=== PATIENT | male | born 1950 | race Caucasian/White ===

== ENCOUNTER → 2016-08-18 | Outpatient (CLI) | payer BC ==
[~2016-08-18] MED LIST: GLCSUNK PO; HYDC25 PO; LISI40TA PO; LRT5 PO; MULT-506 PO; SULF1TAB92 PO
== END | disposition home or self-care (01) ==
LOC: C.PATHSPEC 17:25
PROVIDERS: ATTEND Urology
DX: R31.9 Hematuria, unspecified (principal)

== ENCOUNTER 2021-06-23 08:06 | Observation (INO) ==
--- NOTE | 2021-06-06 09:50 | PAT Medication Instructions ---
Medication Instructions Date of Service June 06, 2021 Home Medications Medication Instructions Recorded oxybutynin chloride 5 mg tablet 5 mg PO Q8H PRN #20 tab 07/22/20 phenazopyridine 200 mg tablet 200 mg PO Q8H PRN #10 tab 07/29/20 (Pyridium) diltiazem HCl 240 mg 240 mg PO QAM #90 cap 09/04/20 capsule,extended release 24 hr finasteride 5 mg tablet 5 mg PO QAM #90 tab 09/04/20 furosemide 80 mg tablet 80 mg PO QAM #90 tab 09/04/20 lancets 30 gauge (OneTouch Delica See Rx Instructions .ROUTE 09/04/20 Lancets) .COMPLEX #100 unspecified digoxin 250 mcg (0.25 mg) tablet 250 mcg PO HS #90 tab 10/30/20 tamsulosin 0.4 mg capsule 0.4 mg PO HS #90 cap 10/30/20 blood sugar diagnostic (OneTouch #100 ea 10/31/20 Verio test strips) pravastatin 20 mg tablet 20 mg PO HS #90 tab 02/09/21 warfarin 5 mg tablet 7.5 - 10 mg PO HS #100 tab 03/12/21 metoprolol succinate 100 mg 100 mg PO QAM #90 tab 04/07/21 tablet,extended release 24 hr metformin 500 mg tablet 1,000 mg PO BID #360 tab 05/01/21 mirabegron 50 mg tablet,extended 50 mg PO QAM 90 Days #90 tab 05/01/21 release 24 hr (Myrbetriq) potassium chloride 20 mEq 20 meq PO BID #180 tab 06/06/21 tablet,extended release vit C 250 mg-vit E 90 mg-zinc 40 mg-copper 1 [id number] capsule (PreserVision AREDS-2) 1 tab PO BID oxybutynin chloride 5 mg tablet 5 mg PO Q8H PRN phenazopyridine 200 mg tablet (Pyridium) 200 mg PO Q8H PRN diltiazem HCl 240 mg capsule,extended release 24 hr 240 mg PO QAM finasteride 5 mg tablet 5 mg PO QAM furosemide 80 mg tablet 80 mg PO QAM digoxin 250 mcg (0.25 mg) tablet 250 mcg PO HS tamsulosin 0.4 mg capsule 0.4 mg PO HS pravastatin 20 mg tablet 20 mg PO HS warfarin 5 mg tablet 7.5 - 10 mg PO HS metoprolol succinate 100 mg tablet,extended release 24 hr 100 mg PO QAM metformin 500 mg tablet 1,000 mg PO BID mirabegron 50 mg tablet,extended release 24 hr (Myrbetriq) 50 mg PO QAM potassium chloride 20 mEq tablet,extended release 20 meq PO BID ASK your prescriber and surgeon warfarin 5 mg tablet 7.5 - 10 mg PO HS STOP taking 2 weeks before surgery vit C 250 mg-vit E 90 mg-zinc 40 mg-copper 1 [id number]-cfwhlc capsule (PreserVision AREDS-2) 1 tab PO BID DO NOT take the morning of surgery oxybutynin chloride 5 mg tablet 5 mg PO Q8H PRN phenazopyridine 200 mg tablet (Pyridium) 200 mg PO Q8H PRN furosemide 80 mg tablet 80 mg PO QAM mirabegron 50 mg tablet,extended release 24 hr (Myrbetriq) 50 mg PO QAM metformin 500 mg tablet 1,000 mg PO BID potassium chloride 20 mEq tablet,extended release 20 meq PO BID Take morning of surgery With a small sip of water, OTHERWISE NOTHING TO EAT OR DRINK AFTER MIDNIGHT: diltiazem HCl 240 mg capsule,extended release 24 hr 240 mg PO QAM finasteride 5 mg tablet 5 mg PO QAM metoprolol succinate 100 mg tablet,extended release 24 hr 100 mg PO QAM Take evening before surgery oxybutynin chloride 5 mg tablet 5 mg PO Q8H PRN (if needed) phenazopyridine 200 mg tablet (Pyridium) 200 mg PO Q8H PRN (if needed) digoxin 250 mcg (0.25 mg) tablet 250 mcg PO HS tamsulosin 0.4 mg capsule 0.4 mg PO HS pravastatin 20 mg tablet 20 mg PO HS metformin 500 mg tablet 1,000 mg PO BID potassium chloride 20 mEq tablet,extended release 20 meq PO BID Other Notes If you have any questions please call us at [phone] or [phone] or [phone] or [phone]
--- NOTE | 2021-06-09 12:04 | Anesthesiology Consultation ---
Date of Service June 09, 2021 Assessment & Plan (1) Encounter for pre-operative examination: - check coags and BSG am DOS. - PCP office visit 04/06/2021 [place]: "...f/u chronic medical problems. He states compliance with current meds as listed. He has been feeling well. He reports compliance with nightly CPAP and feels rested. In regard to his cardiac complaints, he denies CP, SOB, palpitations, dizziness, leg edema...tolerating metformin for type 2 DM. He denies any bleeding issues with warfarin for his Afib. He is still waiting on his prostate procedure which has been postponed due to Covid 19...Diabetes mellitus:A1c will be drawn to assess diabetic control on metformin. Atrial fibrillation: VR controlled continue diltiazem/digoxin/metoprolol/warfarin. Hypertension: at goal continue diltiazem/metoprolol. Obstructive sleep apnea: patient is compliant with and benefitting from CPAP for LEESA..." - cardiology office visit 03/27/2021 [facility]: "...routine cardiology follow- up...does not offer any cardiac complaints today...EKG 03/27/2021 atrial fibrillation 85 bpm RBBB QTC 506...permanent atrial fibrillation-rate controlled, anticoagulated with Coumadin...LEESA compliant with therapy...Chronic diastolic heart failure euvolemic on exam...follow up in 1 year..." - COVID screening: Per assessment on 06/09/2021: Travel screen negative, no known COVID-19 positive contacts or current COVID-19 related symptoms in past 2 weeks. Patient vaccinated. Surgeon arranging preop COVID testing, scheduled 06/19/2021. Awaiting results. Chart Review Chart Review: Acceptable Risk for Surgery and Patient seen in Pre Admission Testing Teaching & Discussion Pre-Anesthesia Teaching/Discussion Notes: Instructed NPO after midnight before surgery, except medications with 15 cc of water. Medication instructions provided according to the PAT guidelines. History Surgery Operation Date: 06/23/21 07:00 Proposed Procedures p (PVP-Greenlight) Photoselective Vaporization of the Prostate using the Greenlight Laser - Gilbert Cat DO s Possible Cystolithopaxy - Gilbert Cat DO Surgery re-scheduled multiple times due to OR limitations in COVID 10 pandemic. Initial anesthesia review 01/2021. Height/Weight Height: 6 ft 1 in Weight: 141.7 kg Allergies Allergy/AdvReac Type Severity Reaction Status Date / Time No Known Drug Allergies Allergy Unknown Verified 06/05/21 13:00 Medications Home Medications Medication Instructions Recorded Confirmed Last Taken vit C 250 mg-vit E 90 mg-zinc 40 1 tab PO BID 04/03/20 06/05/21 07/21/20 15:00 mg-copper 1 [id number]-upgoff-myikmd capsule (PreserVision AREDS-2) oxybutynin chloride 5 mg tablet 5 mg PO Q8H PRN #20 tab 07/22/20 06/05/21 Unknown phenazopyridine 200 mg tablet 200 mg PO Q8H PRN #10 tab 07/29/20 06/05/21 Unknown (Pyridium) diltiazem HCl 240 mg 240 mg PO QAM #90 cap 09/04/20 06/05/21 Unknown capsule,extended release 24 hr finasteride 5 mg tablet 5 mg PO QAM #90 tab 09/04/20 06/05/21 Unknown furosemide 80 mg tablet 80 mg PO QAM #90 tab 09/04/20 06/05/21 Unknown lancets 30 gauge (OneTouch Delica See Rx Instructions .ROUTE 09/04/20 06/05/21 Unknown Lancets) .COMPLEX #100 unspecified digoxin 250 mcg (0.25 mg) tablet 250 mcg PO HS #90 tab 10/30/20 06/05/21 Unknown tamsulosin 0.4 mg capsule 0.4 mg PO HS #90 cap 10/30/20 06/05/21 Unknown blood sugar diagnostic (OneTouch #100 ea 10/31/20 06/05/21 Unknown Verio test strips) pravastatin 20 mg tablet 20 mg PO HS #90 tab 02/09/21 06/05/21 Unknown warfarin 5 mg tablet 7.5 - 10 mg PO HS #100 tab 03/12/21 06/05/21 Unknown metoprolol succinate 100 mg 100 mg PO QAM #90 tab 04/07/21 06/05/21 Unknown tablet,extended release 24 hr metformin 500 mg tablet 1,000 mg PO BID #360 tab 05/01/21 06/05/21 Unknown mirabegron 50 mg tablet,extended 50 mg PO QAM 90 Days #90 tab 05/01/21 06/05/21 Unknown release 24 hr (Myrbetriq) potassium chloride 20 mEq 20 meq PO BID #180 tab 06/06/21 Unknown tablet,extended release Past Medical History Medical History (Updated 06/09/21 @ 16:38 by Claudia Forrest PA-C) Atrial fibrillation Dx Mar 2012 - follows with Dr. Quiles Benign prostatic hyperplasia with urinary obstruction Chronic congestive heart failure Follows with Dr. 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 History of bladder surgery Cystoscopy, Laser Cystolitholapaxy, Transurethral Resection of the Prostate, Transurethral Resection of Bladder Tumor Large History of cardioversion History of cataract surgery bilat History of esophagogastroduodenoscopy (EGD) History of fracture of leg RIGHT LOWER LEG HAS PIN History of tonsillectomy History of wisdom tooth extraction Hx of LASIK S/P appendectomy S/P colonoscopy S/P inguinal hernia repair Status post Mohs surgery LEG Past Anesthesia History No Hx of Anesthesia Complications and No Family Hx of Anesthesia Complications History of PONV No Hx of PONV and No Hx of Motion Sickness Social History Smoking Status: Never smoker Do You Dip or Chew Tobacco: No Hx Alcohol Use: Yes Alcohol type: beer alcohol intake frequency: a few times a month Hx Substance Use: No substance use type: does not use Review of Systems Patient denies chest pain, shortness of breath, dyspnea on exertion, reflux, fever, chills, cough, wheezing, or palpitations. Physical Exam Vital Signs Vitals BP 128/74 P 88 TEMP 97.5 SP02 95% on RA RESP 17 Physical Full cervical extension range of motion without pain Full TMJ range of motion TMD 3.5 finger breaths Mallampati Score 2 Dentition: intact, chipped front teeth, denies missing or loose teeth, caps/crowns, implants or bridges Lungs: normal respiratory effort. Clear throughout to auscultation, no adventitious breath sounds Cardiac: regular rate and rhythm, no murmurs noted Carotid arteries: negative bruit bilat Extremities: no distal extremity edema Lab Results Anesthesia Preop Results Results Anesthesia Widget: WBC 10.76 K/uL (4.8-10.8) 06/09/21 Hgb 14.7 g/dL (14.0-18.0) 06/09/21 Hct 45.3 % (42-52) 06/09/21 Plt 394 K/uL (130-400) 06/09/21 Na 142 mmol/L (136-145) 05/21/21 K 3.7 mmol/L (3.5-5.1) 05/21/21 Cl 102 mmol/L (98-107) 05/21/21 CO2 35 mmol/L (21-32) H 05/21/21 BUN 18 mg/dl (6-23) 05/21/21 Creat 0.71 mg/dl (0.6-1.4) 05/21/21 Glucose Level 208 mg/dl (70-99(Fasting)) H 05/21/21 PT 27.7 Seconds (9.0-12.0) H 06/09/21 PTT 44.9 Seconds (21.0-31.0) H 06/09/21 INR 2.7 (0.9-1.1) H 06/09/21 Urine Color Yellow 06/09/21 Urine Appearance Clear (Clear) 06/09/21 Urine pH 7.5 (4.5-7.5) 06/09/21 Urine Specific [place] 1.007 (1.000-1.030) 06/09/21 Urine Protein Negative (Negative) 06/09/21 Urine Glucose (UA) Negative (Negative) 06/09/21 Urine Ketones Negative (Negative) 06/09/21 Urine Blood Negative (Negative) 06/09/21 Urine Nitrite Negative (Negative) 06/09/21 Urine Bilirubin Negative (Negative) 06/09/21 Urine Urobilinogen Negative (Negative) 06/09/21 Urine Leukocyte Esterase Negative (Negative) 06/09/21 Urine WBC (Auto) 1-5 /hpf (0-5) 05/21/21 Urine RBC (Auto) 0-4 /hpf (0-4) 05/21/21 Urine Hyaline Casts (Auto) 1-5 /lpf (0-5) 05/21/21 Urine Epithelial Cells (Auto) >30 /lpf (0-5) H 05/21/21 Urine Bacteria (Auto) Negative (Negative) 05/21/21 Testing Electrocardiogram Date: 03/27/21 Atrial fibrillation, rate 85 bpm Left axis deviation RBBB LVH Completed at [facility] cardiology appt. Chest X-Ray Date: 07/15/20 FINDINGS: Cardiac silhouette remains mildly enlarged. Stable retrocardiac density. This favors a moderate hiatus hernia. Mild interstitial thickening at the lung bases which is likely chronic. This is also not significantly changed. Old, healed left-sided rib fractures. No focal lung consolidations to suggest pneumonia. No evidence for pulmonary edema. IMPRESSION: No significant change compared to the prior study. No acute process. Echocardiogram Date: 12/14/16 EF 58% Moderate cLVH Severe biatrial dilation No significant valvular abnormalities Other Testing CT abdomen/pelvis 05/19/2021 Moderate hiatal hernia with small amount of fluid within the hernia sac Bladder wall thickening with perivesical stranding suggesting cystitis 3 cm exophytic cyst off the upper pole of the right kidney Lobulated cystic lesion off the midportion of the left kidney measuring 3.3 x 2 cm. Few additional subcentimeter hypodensities which are statistically likely to represent small cysts but are too small to characterize.
[~2021-06-23 08:06] MED LIST changes: -GLCSUNK PO; -HYDC25 PO; -LISI40TA PO; +LR 15ML/HR IV SCH; -LRT5 PO; -MULT-506 PO; -SULF1TAB92 PO
--- NOTE | 2021-06-23 08:26 | History & Physical Report ---
Date of Service June 23, 2021 Assessment & Plan (1) Urinary incontinence: (2) Bladder stones: (3) Benign prostatic hyperplasia with urinary obstruction: Plan: Risks and benefits discussed at length for procedure. These include bleeding, infection, injury to surrounding tissues or organs, and risks associated with anesthesia. Patient states understanding and agrees to proceed. Will sign consent and proceed. Severe bladder outlet obstruction with history of bladder stones. Here for transurethral photovaporization of prostate. Had previously had median lobe resected Plan to observe overnight. History of Present Illness Primary Care Provider: Melania Bustos MD Patient here for procedure. No changes in medical issues. No major changes in urinary issues. Continued issues and concerns. No change in pain or discomfort. No severe fevers or chills. No chest pain or shortness of breath. Risks and benefits discussed at length for procedure. These include bleeding, infection, injury to surrounding tissues or organs, and risks associated with anesthesia. Patient and/or family states understanding and agrees to proceed. Consent and supporting information completed. Allergies Allergy/AdvReac Type Severity Reaction Status Date / Time No Known Drug Allergies Allergy Unknown Verified 06/05/21 13:00 Home Medications Medication Instructions Recorded Confirmed Type vit C 250 mg-vit E 90 mg-zinc 40 1 tab PO BID 04/03/20 06/05/21 History mg-copper 1 [id number]-lwkcin-dhkzwu capsule (PreserVision AREDS-2) oxybutynin chloride 5 mg tablet 5 mg PO Q8H PRN #20 tab 07/22/20 06/05/21 Rx phenazopyridine 200 mg tablet 200 mg PO Q8H PRN #10 tab 07/29/20 06/05/21 Rx (Pyridium) diltiazem HCl 240 mg 240 mg PO QAM #90 cap 09/04/20 06/05/21 Rx capsule,extended release 24 hr finasteride 5 mg tablet 5 mg PO QAM #90 tab 09/04/20 06/05/21 Rx furosemide 80 mg tablet 80 mg PO QAM #90 tab 09/04/20 06/05/21 Rx lancets 30 gauge (OneTouch Delica See Rx Instructions .ROUTE 09/04/20 06/05/21 Rx Lancets) .COMPLEX #100 unspecified digoxin 250 mcg (0.25 mg) tablet 250 mcg PO HS #90 tab 10/30/20 06/05/21 Rx tamsulosin 0.4 mg capsule 0.4 mg PO HS #90 cap 10/30/20 06/05/21 Rx blood sugar diagnostic (OneTouch #100 ea 10/31/20 06/05/21 Rx Verio test strips) pravastatin 20 mg tablet 20 mg PO HS #90 tab 02/09/21 06/05/21 Rx warfarin 5 mg tablet 7.5 - 10 mg PO HS #100 tab 03/12/21 06/05/21 Rx metoprolol succinate 100 mg 100 mg PO QAM #90 tab 04/07/21 06/05/21 Rx tablet,extended release 24 hr metformin 500 mg tablet 1,000 mg PO BID #360 tab 05/01/21 06/05/21 Rx mirabegron 50 mg tablet,extended 50 mg PO QAM 90 Days #90 tab 05/01/21 06/05/21 Rx release 24 hr (Myrbetriq) potassium chloride 20 mEq 20 meq PO BID #180 tab 06/06/21 Rx tablet,extended release Past Med/Surg History Medical History Atrial fibrillation Dx Mar 2012 - follows with Dr. Quiles Benign prostatic hyperplasia with urinary obstruction Chronic congestive heart failure Follows with Dr. 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 History of bladder surgery Cystoscopy, Laser Cystolitholapaxy, Transurethral Resection of the Prostate, Transurethral Resection of Bladder Tumor Large History of cardioversion History of cataract surgery bilat History of esophagogastroduodenoscopy (EGD) History of fracture of leg RIGHT LOWER LEG HAS PIN History of tonsillectomy History of wisdom tooth extraction Hx of LASIK S/P appendectomy S/P colonoscopy S/P inguinal hernia repair Status post Mohs surgery LEG Family History Grandmother Diabetes Mother Stroke Denies family history of Ovarian cancer Prostate cancer Myocardial infarction Breast cancer Colorectal cancer Social History Smoking Status: Never smoker Second Hand Exposure: No; Do You Dip or Chew Tobacco: No; Hx Alcohol Use: Yes Alcohol type: beer Hx Substance Use: No Preferred Language: [place] Communication Ability: Effective Visual Impairment: No Limitations Hearing Ability: Normal Admitting Officer Required: No Beliefs That Will Affect Care: None marital status: Current Living Situation: Spouse current occupational status: retired Feels Safe at Home: Yes Safety Concerns: Feels Safe At This Time Childhood Exposure to Second-Hand Smoke: No caffeine: No (decaf coffee) Dental Care, Regularly: Yes Physical Activity Frequency: Daily Physical Activity Frequency Comment: golf, gym x5d/wk Seatbelt Use: always Sunscreen Use: No Do you think of yourself as: straight/heterosexual Assistive Devices: CPAP and Glasses Review of Systems All systems reviewed & are unremarkable except as noted in HPI & below Physical Exam Physical Exam: General: Alert/Arousable. No Acute illness. Advanced age . HEENT: Inspection normal. Normal inspection of face. Normal inspection of neck. Psychologic: Normal affect/No change in mentation. Respiratory: No use of accessory muscles. No respiratory changes or exacerbation or changes with tachypnea or dyspnea. Cardiovascular: No tachycardia Skin: [place] and Dry. No new rashes or visible lesions. Abdomen: Normal inspection. No guarding. PG Care Time/CCT Total # of Minutes Spent Total Time Spent with Patient: Total time spent is greater than 50% in coordination of care (as documented) at patient's floor/unit and/or counseling patient: Coding Level of Care Code None Diagnoses Urinary incontinence R32 Bladder stones N21.0 Benign prostatic hyperplasia with urinary obstruction N40.1; N13.8
[2021-06-23] MEDS ORDERED: fentaNYL citrate 100 MCG/2 ML VIAL ONE (08:45)
[2021-06-23] MEDS ORDERED: LIDOCAINE 2% 2 ML VIAL/AMP(20MG/ML) INFIL ONE (08:45)
[2021-06-23] MEDS ORDERED: DEXAMETHASONE SOD INJ 4 MG/ML VIAL ONE (08:45)
[2021-06-23] MEDS ORDERED: PROPOFOL IV EMULSION 10 MG/ML 20 ML VIAL IV ONE (08:45)
[2021-06-23] MEDS ORDERED: ONDANSETRON INJ 2 MG/ML 2 ML VIAL ONE (08:45)
[2021-06-23 08:58] LABS: INR 1.1 (0.9-1.1); Partial Thromboplastin Ratio 1.1; Partial Thromboplastin Time 30.1 Seconds (21.0-31.0); Prothrombin Time 11.6 Seconds (9.0-12.0)
[2021-06-23] MEDS ORDERED: FLUMAZENIL 0.1 MG/1 ML 10 ML VIAL IV PRN (09:58)
[2021-06-23] MEDS ORDERED: PROMETHAZINE HCL 12.5 MG in SODIUM CHLORIDE 0.9% 50 ML IV PRN (09:58)
[2021-06-23] MEDS ORDERED: ATROPINE SULFATE 0.1 MG/ML 10ML SYR IV PRN (09:58)
[2021-06-23] MEDS ORDERED: ONDANSETRON INJ 2 MG/ML 2 ML VIAL IV PRN (09:58)
[2021-06-23] MEDS ORDERED: fentaNYL citrate 100 MCG/2 ML VIAL IV PRN (09:58)
[2021-06-23] MEDS ORDERED: ePHEDrine sulfate 50 MG/ML AMP IV PRN (09:58)
[2021-06-23] MEDS ORDERED: LABETALOL HCL IV 5 MG/ML 20ML IV PRN (09:58)
[2021-06-23] MEDS ORDERED: NALOXONE HCL 0.4 MG/1 ML VIAL/CARP IV PRN (09:58)
--- NOTE | 2021-06-23 11:59 | Operative Report ---
PG Post Operative Report Pre & Post Diagnosis Operation Date: 06/23/21 09:40 Pre-Op Diagnosis: Urinary incontinence, Bladder stones, Benign prostatic hyperplasia with urinary obstruction Post-Op Diagnosis: Urinary incontinence, Bladder stones, Benign prostatic hyperplasia with urinary obstruction I identified the patient and participated in the time-out.: Yes Procedure Operation Date: 06/23/21 09:40 Actual Procedures p (PVP-Greenlight) Photoselective Vaporization of the Prostate using the Greenlight Laser with Laser Enucleation of prostate with TURP(Not Applicable) - Gilbert Cat DO Surgeon Gilbert Cat, II, DO Circle Beveler None Estimated Blood Loss 10 Findings Consistent with Post-Op Diagnosis Large Prostate with obstruction. Fusion of lateral lobes with significant projection of prostate into bladder Specimens Prostate adenoma. Prostate enucletion Drains [address] Anesthesia Type General Complications none Disposition Disposition: Recovery Room Indications Patient with obstruction due to prostate enlargement. Risks and benefits discussed at length. Description of Procedure Patient was consented and brought back to the operating room. Patient was placed under anesthesia in the supine position and moved to the dorsal lithotomy position. Patient was prepped and draped in the regular sterile fashion. A time out was completed. A 30degree Cystoscope was placed into the bladder and the entire bladder was examined. The UO's were identified as well as the bladder neck, trigone, dome, and the other important landmarks. The prostatic urethra and large lobes/adenoma was assessed and the veru and bladder neck identified and area/size was assessed. The cystoscope with laser bridge and the Greenlight laser fiber were selected. Starting at the 5 and 7 o'clock positions, the channel was further formed from the previous resecton This was expanded from bladder neck to the veru. A channel was further formed between the two areas. No major bleeding or areas of concern. The vaporization then started at the 1 and 11 oclock positions to cut through the fusion of the lateral lobes. This was freed and the greenlight was used to enucleate pieces of adenoma in the anterior prostate. Additionally pieces were enucleated from the apex region up to the bladder neck at the 7-9 o'clock and 3-5 o'clock position. Adenoma pieces were enucleated and displaced into the bladder. The vaporization was then swept down to the channel. All bleeding was controlled. The resection scope was then exchanged into the bladder and the fine bipolar loop was selected. A severe amount of projection of the left lateral/anterior prostate was appreciated. This was resected with the scope. The enucleated pieces were removed and sent. The resected pieces were also irrigated and sent. The Specimen was removed and sent for analysis. The resection bed and any bl eeding areas were fulgurated/cauterized and the entire area inspected. All bleeding was controlled. The bladder was inspected a final time. The bladder was emptied and irrigated. All specimen and debris was removed. The scope was removed with the bladder partially full. A catheter was placed and balloon elevated. This was easily irrigated. The patient was cleaned, aroused from anesthesia, and transferred to the pacu in stable condition having tolerated the procedure well with no complications. I was present and participated in all aspects of the procedure. The patient will be monitored in the PACU until transferred. Plan to maintain catheter with 3 way irrigation overnight. Will plan for 7-10 days of catheter with removal in office. WIll monitor. I attest to the content of the Intraoperative Record and any orders documented therein. Any exceptions are noted below.
--- NOTE | 2021-06-23 13:19 | Anesthesiology Progress Note ---
Date of Service June 23, 2021 Anesthesia Post Procedure Vital Signs Vital Signs: Temp Pulse Pulse Resp BP Pulse Ox 06/23/21 12:50 78 18 133/72 97 06/23/21 12:40 36.3 C L 70 21 134/78 93 06/23/21 12:30 76 23 142/79 H 95 06/23/21 12:20 78 19 124/74 99 06/23/21 12:10 72 19 124/74 99 06/23/21 12:00 79 18 125/74 95 06/23/21 11:53 36.6 C 72 20 114/63 94 06/23/21 08:30 36.8 C 83 20 174/95 H 96 Pain Intensity Penis: Pain Intensity: 3 Transfer of Care Handoff Completed per policy Notes Mental Status: alert / awake / arousable Patient Amnestic to Procedure: Yes Nausea / Vomiting: adequately controlled Pain: adequately controlled Airway Patency, RR, SpO2: stable & adequate BP & HR: stable & adequate Hydration State: stable & adequate Anesthetic Complications: no major complications apparent
[2021-06-23] MEDS ORDERED: OXYBUTYNIN CHLORIDE 5 MG TAB PO PRN (13:20)
[2021-06-23] MEDS ORDERED: oxyCODONE/ACETAMINOPHEN 5mg/325mg TAB PO PRN (13:20)
[2021-06-23] MEDS ORDERED: BELLADONNA/OPIUM SUPP 60 MG SUPP PR PRN (13:20)
[2021-06-23] MEDS ORDERED: MoRPHine SULFATE 2 MG/ML CARP IV PRN (13:20)
[2021-06-23] MEDS ORDERED: PHENAZOPYRIDINE HCL 200 MG TAB PO PRN (13:20)
[2021-06-23] MEDS ORDERED: NON-FORMULARY MEDICATION (Vit C,E-Zn-Coppr-Lutein-Zeaxan [Preservision Areds-2] 250-200-40 PO SCH (13:20)
[2021-06-23] MEDS: FUROSEMIDE 80 MG TAB PO SCH (14:12)
[2021-06-23] MEDS: METOPROLOL SUCC 50MG EXT REL TAB PO SCH (14:12)
[2021-06-23] MEDS: dilTIAZem HCL 240 MG CAPCR PO SCH (14:12)
[2021-06-23] MEDS: DOCUSATE SODIUM 100 MG CAP PO SCH ×2 (14:12→20:04)
[2021-06-23] MEDS: SODIUM CHLORIDE 0.9% 1000ML 1,000 ML IV SCH ×2 (14:14→23:33)
[2021-06-23 14:19] LABS: Basophils # (auto) 0.02 K/uL (0-0.2); Basophils % (auto) 0.1 %; Eosinophils # (auto) 0.15 K/uL (0-0.5); Hematocrit (blood only) 42.2 % (42-52); Hemoglobin 14.2 g/dL (14.0-18.0); Immature Granulocytes # (auto) 0.12 K/uL (0.00-0.02); Immature Granulocytes % (auto) 0.8 %; Lymphocytes # (auto) 1.81 K/uL (1.2-3.4); Lymphocytes % (auto) 12.3 %; Mean Corpuscular Hemoglobin 29.2 pg (25-34); Mean Corpuscular Hgb Conc 33.6 g/dL (32-36); Mean Corpuscular Volume 86.7 fL (80-100); Mean Platelet Volume 11.3 fL (7.4-10.4); Monocytes # (auto) 0.88 K/uL (0.11-0.59); Neutrophils # (auto) 11.76 K/uL (1.4-6.5); Neutrophils % (auto) 79.8 %; Platelet Count 370 K/uL (130-400); RDW Coefficient of Variation 15.3 % (11.5-14.5); RDW Standard Deviation 48.8 fL (36.4-46.3); Red Blood Count 4.87 M/uL (4.7-6.1); White Blood Count 14.74 K/uL (4.8-10.8)
[2021-06-23 14:47] LABS: BUN Creatinine Ratio 22.7 (10-20); Calcium 8.1 mg/dl (8.5-10.1); Creatinine Clr Calc Pharmacy 153.5 ml/min; Est GFR (African American) 113.5 ml/min; Potassium 3.7 mmol/L (3.5-5.1)
--- NOTE | 2021-06-23 15:12 | Hospitalist Consultation ---
Date of Consultation June 23, 2021 Assessment & Plan (1) Benign prostatic hyperplasia with urinary obstruction: POD #0 as HPI - Pain control per primary service- appropriate with rescue Narcan available - Antibiotics per primary service - Ly/drains/CBI- per primary service - Diet per primary service - Transfusion needs per primary service - PT/OT per primary service (2) Atrial fibrillation: Chronic permanent atrial fibrillation - On Coumadin as outpatient - last took Wednesday - Last admission for uncontrolled rate was ~ 3 years ago - Continue Metoprolol, Digoxin, Diltiazem - Dig level in morning - Keep K ~ 4 and Mg ~ 2 (3) Hyperlipidemia: Continue pravastatin (4) Chronic congestive heart failure: Stable chronic- currently without acute exacerbation - As above - Continue lasix if renal indices remain normal and patient is euvolemic/hypervolemic (5) Obstructive sleep apnea: Continue with home CPAP - Patient is compliant with use - recommended to use while even napping in house if he is taking pain medication - he understood (6) Hypertension: As above (7) Diabetes mellitus: BG AC/HS with aspart sliding scale CF 20 with 1:12 ratio - follow (8) On anticoagulant therapy: On Coumadin for chronic Afib - Last taken last Wednesday- INR 1.1 - Restart when hemostasis ensured by primary service- no bridge Supervising Physician Co-Signing Physician Notes Attending Attestation & Consult Note: Pt seen/examined, chart reviewed, consult care plan d/w CAROL Eastman. I agree w/ the espinoza components of his consultation documentation. 71yo male with permanent a.fib on coumadin, BPH, chronic diastolic CHF, morbid obesity with BMI 40 - presented today for elective TURP via greenlight laser. Performing urologist Dr Gilbert Cat. I saw the patient post-op on the medical unit late in the evening. He was resting comfortably watching TV. Denied any cough, dyspnea, cp, abd pain. While sitting in the bed his O2 sats were consistently 89-90% in RA. I checked his sats w/ a different oximeter and again his O2 sats were about 90%. Exam - gen - NAD, no respiratory distress neck - no JVD heart - irregularly irregular, s1 s2 lungs - b/l basilar rales but much worse on the left; airation poor/fair; no increased work of breathing abd - soft NT ND BS+ ext - no edema, pulses 2+ b/l A/P: 1. BPH s/p greenlight laser TURP today by Dr Cat. 2. hypoxia without any pulmonary symptoms - I obtained a cxr following my visit - largely unchanged from prior cxr (my reading). Low threshold to give IV lasix this evening if any worsening of his sats. Atelectasis could be contributing to his hypoxia as well. For the rest of the evening will place on his home CPAP unit. If he needs O2 th is can be added to his CPAP. Would advise d/c of IV fluids given his known chronic diastolic CHF. 3. chronic diastolic CHF - as above. 4. permanent a.fib - rates controlled; defer to urology when coumadin can be safely resumed. Cont tele. Cont dig/CCB/BB. Agree with dig level in am. Thank you for this consult. We will follow closely with you. Jose Keller MD History of Present Illness Reason for Consultation: Medical Management Requesting Physician: Gilbert Cat Attending Physician: Gilbert Cat, II, DO History of Present Illness 71 YOM with past medical history of: LEESA(CPAP compliant), AFib (on Coumadin), HFpEF, HTN, Obesity, Urinary Incontinence, Bladder stones, and BPH with outflow obstruction. Patient is POD #0 from Photoselective Vaporization of the Prostate using the Green-light Laser with Laser Enucleation of prostate with TURP(Not Applicable) by Dr. Cat (Urology). The patient has held his Coumadin since last Wednesday. Hospitalist service was consulted for medical management. The patient was evaluated in his room on the patino. He is briskly awake and tolerated crackers. He has not had any n/v and pain is controlled postoperatively. He is on room air. Has [address] connected to CBI and is draining clear. Recommendations: - Notify hospitalist service when hemostasis ensured and can restart his Co umadin - Hold Metformin - BG checks AC/HS- sliding scale aspart ordered - Continued Digoxin- Digoxin level in the AM- already ordered Allergies Allergy/AdvReac Type Severity Reaction Status Date / Time No Known Drug Allergies Allergy Unknown Verified 06/23/21 08:37 Home Medications Medication Instructions Recorded Confirmed Type vit C 250 mg-vit E 90 mg-zinc 40 1 tab PO BID 04/03/20 06/23/21 History mg-copper 1 [id number] capsule (PreserVision AREDS-2) oxybutynin chloride 5 mg tablet 5 mg PO Q8H PRN #20 tab 07/22/20 06/23/21 Rx phenazopyridine 200 mg tablet 200 mg PO Q8H PRN #10 tab 07/29/20 06/23/21 Rx (Pyridium) diltiazem HCl 240 mg 240 mg PO QAM #90 cap 09/04/20 06/23/21 Rx capsule,extended release 24 hr finasteride 5 mg tablet 5 mg PO QAM #90 tab 09/04/20 06/23/21 Rx furosemide 80 mg tablet 80 mg PO QAM #90 tab 09/04/20 06/23/21 Rx lancets 30 gauge (OneTouch Vandana See Rx Instructions .ROUTE 09/04/20 06/23/21 Rx Lancets) .COMPLEX #100 unspecified digoxin 250 mcg (0.25 mg) tablet 250 mcg PO HS #90 tab 10/30/20 06/23/21 Rx tamsulosin 0.4 mg capsule 0.4 mg PO HS #90 cap 10/30/20 06/23/21 Rx blood sugar diagnostic (OneTouch #100 ea 10/31/20 06/05/21 Rx Verio test strips) pravastatin 20 mg tablet 20 mg PO HS #90 tab 02/09/21 06/23/21 Rx warfarin 5 mg tablet 7.5 - 10 mg PO HS #100 tab 03/12/21 06/23/21 Rx metoprolol succinate 100 mg 100 mg PO QAM #90 tab 04/07/21 06/23/21 Rx tablet,extended release 24 hr metformin 500 mg tablet 1,000 mg PO BID #360 tab 05/01/21 06/23/21 Rx mirabegron 50 mg tablet,extended 50 mg PO QAM 90 Days #90 tab 05/01/21 06/23/21 Rx release 24 hr (Myrbetriq) potassium chloride 20 mEq 20 meq PO BID #180 tab 06/06/21 06/23/21 Rx tablet,extended release cephalexin 500 mg capsule 500 mg PO BID 7 Days #14 cap 06/24/21 Rx docusate sodium 100 mg capsule 100 mg PO BID #60 cap 03/22/22 Rx (Colace) Patient History Medical History Atrial fibrillation Dx Mar 2012 - follows with Dr. Quiles Benign prostatic hyperplasia with urinary obstruction Chronic congestive heart failure Follows with Dr. 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 History of bladder surgery Cystoscopy, Laser Cystolitholapaxy, Transurethral Resection of the Prostate, Transurethral Resection of Bladder Tumor Large History of cardioversion History of cataract surgery bilat History of esophagogastroduodenoscopy (EGD) History of fracture of leg RIGHT LOWER LEG HAS PIN History of tonsillectomy History of wisdom tooth extraction Hx of LASIK S/P appendectomy S/P colonoscopy S/P inguinal hernia repair Status post Mohs surgery LEG Family History Grandmother Diabetes Mother Stroke Denies family history of Ovarian cancer Prostate cancer Myocardial infarction Breast cancer Colorectal cancer Social History Smoking Status: Never smoker Second Hand Exposure: No; Do You Dip or Chew Tobacco: No; Hx Alcohol Use: Yes Alcohol type: beer Hx Substance Use: No Preferred Language: Maldivian Communication Ability: Effective Visual Impairment: No Limitations Hearing Ability: Normal Manager Policy Required: No Beliefs That Will Affect Care: None marital status: Current Living Situation: Spouse current occupational status: retired Feels Safe at Home: Yes Safety Concerns: Feels Safe At This Time Childhood Exposure to Second-Hand Smoke: No caffeine: No (decaf coffee) Dental Care, Regularly: Yes Physical Activity Frequency: Daily Physical Activity Frequency Comment: golf, gym x5d/wk Seatbelt Use: always Sunscreen Use: No Do you think of yourself as: straight/heterosexual Assistive Devices: CPAP Review of Systems Review of Systems: REVIEW OF SYSTEMS: Constitutional: No fever, sweats or chills Eyes: No diplopia, no worsening or blurred vision ENT: normal hearing, no trouble swallowing Respiratory: (+) LEESA wears CPAP, No cough, sputum, dyspnea at rest or on exertion Cardiovascular: (+) Afib hx, No chest pain, tightness or palpitations Abdomen: No pain, nausea, vomiting, diarrhea or constipation Musculoskeletal: No joint pain, calf pain, swelling Neurologic: No weakness, numbness/tingling, or balance problems Psychiatric: No anxiety or depression Skin: No rash or itch Physical Exam Physical Exam: PHYSICAL EXAM: General: awake, alert, no apparent distress Head: Normocephalic, atraumatic ENT: PERRL, EOMI, no pharyngeal exudate, mucous membranes moist Neuro: AAO x 3, speech clear and appropriate, strength intact bilaterally 5/5, sensation intact and equal all extremities and dermatomes, no pronator drift Chest: equal rise and fall of the chest, no accessory muscle use, no heaves or thrills, Clear to auscultation, on room air, Cardiac: Regular rate and rhythm, telemetry reviewed, skin warm dry, cap refill <3 seconds, peripheral pulses +2 no JVD, no murmur, no edema GI: NABS x 4 quadrants, soft, nontender to palpation, no rebound, guarding or tenderness : Spontaneously voiding, no pain, no CVA tenderness, Extremities: Normal inspection, no peripheral edema or erythema, calfs nontender to palpation Psych: Normal mood and affect Skin: no rash or erythema Results & Data Results & Data ([facility]) Vital Signs (Past 12 Hours) Vital Signs Temp Pulse Pulse Pulse Resp BP Pulse Ox 06/23/21 14:19 36.4 C L 76 18 137/78 93 06/23/21 13:15 36.2 C L 80 18 138/81 94 06/23/21 12:50 78 18 133/72 97 06/23/21 12:40 36.3 C L 70 21 134/78 93 06/23/21 12:30 76 23 142/79 H 95 06/23/21 12:20 78 19 124/74 99 06/23/21 12:10 72 19 124/74 99 06/23/21 12:00 79 18 125/74 95 06/23/21 11:53 36.6 C 72 20 114/63 94 06/23/21 08:30 36.8 C 83 20 174/95 H 96 Laboratory Results Abnormal lab results 06/23/21 06/23/21 06/23/21 Range/Units 08:29 11:58 13:45 WBC 14.74 H (4.8-10.8) K/uL RDW Std Deviation 48.8 H (36.4-46.3) fL RDW Coeff of Mayank 15.3 H (11.5-14.5) % MPV 11.3 H (7.4-10.4) fL Neut # (Auto) 11.76 H (1.4-6.5) K/uL Placer # (Auto) 0.88 H (0.11-0.59) K/uL Immature Gran # (Auto) 0.12 H (0.00-0.02) K/uL BUN/Creatinine Ratio (10-20) Glucose (70-99(Fasting)) mg/dl POC Glucose 168 H 141 H (70-99) mg/dl Calcium (8.5-10.1) mg/dl 06/23/21 06/23/21 Range/Units 13:45 16:35 WBC (4.8-10.8) K/uL RDW Std Deviation (36.4-46.3) fL RDW Coeff of Mayank (11.5-14.5) % MPV (7.4-10.4) fL Neut # (Auto) (1.4-6.5) K/uL Placer # (Auto) (0.11-0.59) K/uL Immature Gran # (Auto) (0.00-0.02) K/uL BUN/Creatinine Ratio 22.7 H (10-20) Glucose 167 H (70-99(Fasting)) mg/dl POC Glucose 180 H (70-99) mg/dl Calcium 8.1 L (8.5-10.1) mg/dl Medications Administered Home Medications vit C 250 mg-vit E 90 mg-zinc 40 mg-copper 1 [id number] capsule (PreserVision AREDS-2) 1 tab PO BID 04/03/20 [History Confirmed 06/23/21] oxybutynin chloride 5 mg tablet 5 mg PO Q8H PRN #20 tab 07/22/20 [Rx Confirmed 06/23/21] phenazopyridine 200 mg tablet (Pyridium) 200 mg PO Q8H PRN #10 tab 07/29/20 [Rx Confirmed 06/23/21] diltiazem HCl 240 mg capsule,extended release 24 hr 240 mg PO QAM #90 cap 09/04/20 [Rx Confirmed 06/23/21] finasteride 5 mg tablet 5 mg PO QAM #90 tab 09/04/20 [Rx Confirmed 06/23/21] furosemide 80 mg tablet 80 mg PO QAM #90 tab 09/04/20 [Rx Confirmed 06/23/21] lancets 30 gauge (ResermapTouch Delica Lancets) See Rx Instructions .ROUTE .COMPLEX #100 unspecified 09/04/20 [Rx Confirmed 06/23/21] digoxin 250 mcg (0.25 mg) tablet 250 mcg PO HS #90 tab 10/30/20 [Rx Confirmed 06/23/21] tamsulosin 0.4 mg capsule 0.4 mg PO HS #90 cap 10/30/20 [Rx Confirmed 06/23/21] blood sugar diagnostic (H[employer] Verio test strips) #100 ea 10/31/20 [Rx Confirmed 06/05/21] pravastatin 20 mg tablet 20 mg PO HS #90 tab 02/09/21 [Rx Confirmed 06/23/21] warfarin 5 mg tablet 7.5 - 10 mg PO HS #100 tab 03/12/21 [Rx Confirmed 06/23/21] metoprolol succinate 100 mg tablet,extended release 24 hr 100 mg PO QAM #90 tab 04/07/21 [Rx Confirmed 06/23/21] metformin 500 mg tablet 1,000 mg PO BID #360 tab 05/01/21 [Rx Confirmed 06/23/21] mirabegron 50 mg tablet,extended release 24 hr (Myrbetriq) 50 mg PO QAM 90 Days #90 tab 05/01/21 [Rx Confirmed 06/23/21] potassium chloride 20 mEq tablet,extended release 20 meq PO BID #180 tab 06/06/21 [Rx Confirmed 06/23/21] Active Medications Belladonna Alkaloids/Opium (Belladonna/Opium Supp 60 Mg Supp) 60 mg RI Q8 PRN PRN Reason: Bladder pain Stop: 07/07/21 13:19 Digoxin (Digoxin 0.25 Mg Tab) 0.25 mg PO HS [facility] Stop: 07/23/21 20:59 Diltiazem HCl (Diltiazem Hcl 240 Mg Capcr) 240 mg PO [facility] Stop: 07/23/21 13:19 Last Admin: 06/23/21 14:12 Dose: 240 mg Documented by: Docusate Sodium (Docusate Sodium 100 Mg Cap) 100 mg PO BID [facility] Stop: 07/23/21 13:19 Last Admin: 06/23/21 14:12 Dose: 100 mg Documented by: Furosemide (Furosemide 80 Mg Tab) 80 mg PO [facility] Stop: 07/23/21 13:19 Last Admin: 06/23/21 14:12 Dose: 80 mg Documented by: Lactated Ringer's (Lr) 1,000 mls @ 15 mls/hr IV .Q24H [facility] Stop: 06/24/21 05:59 Last Infusion: 06/23/21 09:27 Dose: Infused Documented by: Cefazolin Sodium (Ancef 3000mg) 72.5 mls @ 130 mls/hr IV PREOP [facility]; Protocol Stop: 06/23/21 18:00 Last Infusion: 06/23/21 13:35 Dose: Infused Documented by: Sodium Chloride (Nss 1000ml) 1,000 mls @ 75 mls/hr IV .[id number] [facility] Stop: 07/23/21 13:19 Last Admin: 06/23/21 14:14 Dose: Not Given Documented by: Cefazolin Sodium (Ancef 2000mg) 2,000 mg in 15 mls @ 3.75 mls/min IV Q8H [facility]; Protocol Stop: 06/24/21 17:59 Metoprolol Succinate (Metoprolol Succ 50mg Ext Rel Tab) 100 mg PO [facility] Stop: 07/23/21 13:19 Last Admin: 06/23/21 14:12 Dose: 100 mg Documented by: Morphine Sulfate (Morphine Sulfate 2 Mg/Ml Carp) 2 mg IV Q3H PRN PRN Reason: Pain (1,2,3,4,5) & Pre PT Stop: 07/07/21 13:19 Oxybutynin Chloride (Oxybutynin Chloride 5 Mg Tab) 5 mg PO Q8H PRN PRN Reason: bladder spasms Stop: 07/23/21 13:19 Oxycodone/Acetaminophen (Oxycodone/Acetaminophen 5mg/325mg Tab) 1 tab PO Q4H PRN PRN Reason: MODERATE Pain (4,5,6) & Pre PT Stop: 07/07/21 13:19 Phenazopyridine HCl (Phenazopyridine Hcl 200 Mg Tab) 200 mg PO Q8H PRN PRN Reason: pain Stop: 07/23/21 13:19 Pravastatin Sodium (Pravastatin Sod 20 Mg Tab) 20 mg PO HS [facility] Stop: 07/23/21 20:59 Tamsulosin HCl (Tamsulosin Hcl 0.4 Mg Cap) 0.4 mg PO HS [facility] Stop: 07/23/21 20:59 PG Care Time/CCT Total # of Minutes Spent Total Time Spent with Patient: Total time spent is greater than 50% in coordination of care (as documented) at patient's floor/unit and/or counseling patient: Coding Level of Care Code 07387 Office/OBS Consult Lvl 4 Diagnoses Benign prostatic hyperplasia with urinary obstruction N40.1; N13.8 Atrial fibrillation I48.91 Hyperlipidemia E78.5 Chronic congestive heart failure I50.9 Obstructive sleep apnea G47.33 Hypertension I10 Diabetes mellitus E11.9 On anticoagulant therapy Z79.01
[2021-06-23] MEDS ORDERED: GLUCAGON FOR INJ 1 MG VIAL SQ PRN (17:28)
[2021-06-23] MEDS ORDERED: DEXTROSE 50% 50 ML SYRINGE IV PRN (17:28)
[2021-06-23] MEDS ORDERED: GLUCOSE 40% GEL 15 GM TUBE PO PRN (17:28)
[2021-06-23] MEDS ORDERED: CARBOHYDRATES FOR HYPOGLYCEMIA PO PRN (17:28)
[2021-06-23] MEDS ORDERED: GLUCOSE 10 TABS/TUBE PO PRN (17:28)
[2021-06-23] MEDS: ceFAZolin 2000MG 2,000 MG/15 ML SYR IV SCH (17:32)
[2021-06-23] MEDS: INSULIN ASPART PER UNIT SC SCH (20:04)
[2021-06-23] MEDS ORDERED: TAMSULOSIN HCL 0.4 MG CAP PO SCH (21:00)
[2021-06-23] MEDS ORDERED: PRAVASTATIN SOD 20 MG TAB PO SCH (21:00)
[2021-06-23] MEDS ORDERED: DIGOXIN 0.25 MG TAB PO SCH (21:00)
[2021-06-24] MEDS: ceFAZolin 2000MG 2,000 MG/15 ML SYR IV SCH ×2 (01:10→11:15)
--- NOTE | 2021-06-24 07:08 | XRay Report ---
XR chest 1V portable CLINICAL HISTORY: hypoxia, b/l basilar rales. COMPARISON STUDY: 07/15/2020 TECHNIQUE: 1 view of the chest FINDINGS: Single frontal view of the chest demonstrates the heart size to again be enlarged. There is a decreas ed inspiratory effort with elevation of the hemidiaphragms and crowding of the bronchovascular markin gs at the lung bases and centrally. The lungs are otherwise clear of alveolar opacities. There is no evidence for pleural effusion. There is no evidence for vascular congestion. There is no acute osseou s pathology. IMPRESSION: 1. . There is a decreased inspiratory effort with otherwise no acute chest disease. ACT 112: Negative or not required by law. Electronically signed by: Felix Breaux M.D. 06/24/2021 7:07 AM
[2021-06-24] MEDS: DOCUSATE SODIUM 100 MG CAP PO SCH ×3 (07:49→12:32)
[2021-06-24] MEDS: FUROSEMIDE 80 MG TAB PO SCH (07:49)
[2021-06-24] MEDS: METOPROLOL SUCC 50MG EXT REL TAB PO SCH (07:49)
[2021-06-24] MEDS: dilTIAZem HCL 240 MG CAPCR PO SCH (07:49)
[2021-06-24] MEDS: INSULIN ASPART PER UNIT SC SCH (09:08)
[2021-06-24 09:14] LABS: Basophils # (auto) 0.03 K/uL (0-0.2); Basophils % (auto) 0.2 %; Eosinophils # (auto) 0.39 K/uL (0-0.5); Eosinophils % (auto) 2.7 %; Hematocrit (blood only) 42.5 % (42-52); Hemoglobin 14.1 g/dL (14.0-18.0); Immature Granulocytes # (auto) 0.08 K/uL (0.00-0.02); Immature Granulocytes % (auto) 0.5 %; Lymphocytes # (auto) 2.08 K/uL (1.2-3.4); Lymphocytes % (auto) 14.2 %; Mean Corpuscular Hgb Conc 33.2 g/dL (32-36); Mean Corpuscular Volume 87.3 fL (80-100); Mean Platelet Volume 11.7 fL (7.4-10.4); Monocytes # (auto) 1.37 K/uL (0.11-0.59); Monocytes % (auto) 9.4 %; Platelet Count 371 K/uL (130-400); RDW Coefficient of Variation 15.7 % (11.5-14.5); RDW Standard Deviation 50.5 fL (36.4-46.3); Red Blood Count 4.87 M/uL (4.7-6.1); White Blood Count 14.65 K/uL (4.8-10.8)
--- NOTE | 2021-06-24 09:26 | Urology Progress Note ---
Date of Service June 24, 2021 Assessment & Plan (1) Benign prostatic hyperplasia with urinary obstruction: Plan: - Pt POD#1 s/p Greenlight TURP with Dr. Cat. - Doing well, progressing as expected. - Afebrile, lab work reviewed - creatinine 0.68, WBC 14.65, Hgb 14.1. - Potassium slightly low at 3.2 this AM, his home Potassium has been on hold. - Discussed with hospital medicine - resume PO Potassium today, order placed for dose this AM. - Tolerating PO diet. - 3 way Ly catheter intact, patent and draining light pink urine with CBI on slow. - CBI clamped @0900, nursing aware - will reassess later this AM. - Maintain Ly catheter upon discharge, ~7-[address] Cat. - Anticipate home with Ly catheter later today presuming urine appropriate and he continues to progress as expected. - Will discharge with course of PO antibiotics. - Per Dr. Cat, patient can resume warfarin in 1-2 days if urine remains clear to pink - patient verbalizes good understanding. - Expected clinical course reviewed, all questions answered. - Will arrange outpatient follow-up with our service for voiding trial. Pt reassessed at 1100 Ly intact, patent and draining clear yellow urine with minimal pink tinge with CBI clamped. Will d/c CBI now. Maintain Ly catheter. Patient feels ready for discharge. All questions answered. Discharge orders placed. Admission and Anticipated Discharge Date Admission Date: June 23, 2021 Subjective Patient seen and examined at bedside this AM. He is awake, alert and just ambulated back to bed from bathroom. No acute issues overnight. Subjectively feeling well. Denies suprapubic, abdominal or flank pain. Ly catheter intact, patent and draining light pink urine with CBI on slow. CBI clamped at 0900, RN aware. Patient and RN note some leakage around catheter after ambulation. Tolerating PO diet, no nausea or vomiting. No fever or chills. Offers no additional concerns at present. Review of Systems Constitutional: as per Subjective / HPI Gastrointestinal: as per Subjective / HPI Genitourinary: + as per Subjective / HPI Physical Exam Constitutional: well developed, well nourished and + obese; no acute distress and not ill appearing Respiratory: normal respiratory effort and able to speak in complete sentences; no respiratory distress and no labored breathing Cardiovascular: Extremities: no pedal edema Gastrointestinal (Abdomen): Inspection/Auscultation: abdomen normal to inspection; abdomen not distended Percussion/Palpation: abdomen soft; abdomen nontender and no guarding Neurologic: moves all extremities and awake Psychiatric: Orientation: alert and oriented x 3 Genitourinary: Ly catheter intact, patent and draining light pink urine with CBI on slow. CBI clamped at 0900, RN aware. Results & Data ([facility]) Vital Signs (Past 12 Hours) Vital Signs Temp Pulse Pulse Resp BP Pulse Ox 06/24/21 07:39 37.0 C 85 20 158/77 H 90 06/24/21 03:37 37.0 C 86 20 132/78 92 06/23/21 23:14 36.5 C 85 20 112/64 92 06/23/21 22:18 88 PG Care Time/CCT Total # of Minutes Spent Total Time Spent with Patient: Total time spent is greater than 50% in coordination of care (as documented) at patient's floor/unit and/or counseling patient: Coding Level of Care Code 47590 Subseq Hosp Care Lvl 2 Diagnoses Benign prostatic hyperplasia with urinary obstruction N40.1; N13.8
[2021-06-24 09:32] LABS: BUN Creatinine Ratio 22.1 (10-20); Calcium 8.1 mg/dl (8.5-10.1); Creatinine Clr Calc Pharmacy 147.5 ml/min; Est GFR (African American) 112.1 ml/min; Est GFR (Non-African American) 96.8 ml/min; Potassium 3.2 mmol/L (3.5-5.1)
[2021-06-24] MEDS ORDERED: POTASSIUM CHLORIDE CRTAB 20 MEQ TABCR PO ONE (11:24)
--- NOTE | 2021-06-24 11:57 | Discharge Summary ---
Date of Service June 24, 2021 Admission HPI Per Admitting Provider Patient here for procedure. No changes in medical issues. No major changes in urinary issues. Continued issues and concerns. No change in pain or discomfort. No severe fevers or chills. No chest pain or shortness of breath. Risks and benefits discussed at length for procedure. These include bleeding, infection, injury to surrounding tissues or organs, and risks associated with anesthesia. Patient and/or family states understanding and agrees to proceed. Consent and supporting information completed. Admission Exam Per Admitting Provider Physical Exam: General: Alert/Arousable. No Acute illness. Advanced age . HEENT: Inspection normal. Normal inspection of face. Normal inspection of neck. Psychologic: Normal affect/No change in mentation. Respiratory: No use of accessory muscles. No respiratory changes or exacerbation or changes with tachypnea or dyspnea. Cardiovascular: No tachycardia Skin: [place] and Dry. No new rashes or visible lesions. Abdomen: Normal inspection. No guarding. Principal Diagnosis BPH with urinary obstruction Discharge Exam Constitutional well developed, well nourished and + obese; no acute distress and not ill appearing Respiratory normal respiratory effort and able to speak in complete sentences; no respiratory distress and no labored breathing Cardiovascular Extremities: no pedal edema Gastrointestinal (Abdomen) Inspection/Auscultation: abdomen normal to inspection; abdomen not distended Percussion/Palpation: abdomen soft; abdomen nontender and no guarding Neurologic moves all extremities and awake Psychiatric Orientation: alert and oriented x 3 Genitourinary Ly catheter intact, patent and draining light pink urine with CBI on slow. CBI clamped at 0900, RN aware. Discharge Data Allergies Allergy/AdvReac Type Severity Reaction Status Date / Time No Known Drug Allergies Allergy Unknown Verified 06/23/21 08:37 Consultations 06/23/21 13:20 Consult Hospitalist Routine Procedures Performed Operation Date: 06/23/21 09:40 Actual Procedures p (PVP-Greenlight) Photoselective Vaporization of the Prostate using the Greenlight Laser, Eneucleation of prostate with TURP(Not Applicable) - Gilbert Cat, DO Hospital Course (1) Benign prostatic hyperplasia with urinary obstruction: - Pt POD#1 s/p Greenlight TURP with Dr. Cat. - Doing well, progressing as expected. - Afebrile, lab work reviewed - creatinine 0.68, WBC 14.65, Hgb 14.1. - Potassium slightly low at 3.2 this AM, his home Potassium has been on hold. - Discussed with hospital medicine - resume PO Potassium today, order placed for dose this AM. - Tolerating PO diet. - 3 way Ly catheter intact, patent and draining light pink urine with CBI on slow. - CBI clamped @0900, nursing aware - will reassess later this AM. - Maintain Ly catheter upon discharge, ~7-[address] Cat. - Anticipate home with Ly catheter later today presuming urine appropriate and he continues to progress as expected. - Will discharge with course of PO antibiotics. - Per Dr. Cat, patient can resume warfarin in 1-2 days if urine remains clear to pink - patient verbalizes good understanding. - Expected clinical course reviewed, all questions answered. - Will arrange outpatient follow-up with our service for voiding trial. Pt reassessed at 1100 Ly intact, patent and draining clear yellow urine with minimal pink tinge with CBI clamped. Will d/c CBI now. Maintain Ly catheter. Patient feels ready for discharge. All questions answered. Discharge orders placed. Total Time Total Time Spent Total Time Spent (In Minutes): 29 Discharge Plan Discharge Items Patient Disposition: Home - Self-Care Reason For Visit: Bladderstones, BPH with Urinary Obstruction Discharge Diagnosis: Bladder stones, BPH with urinary obstruction Activity: Per Instructions section Lifting: No more than 25 pounds Bathing Comment: OK to shower after discharge, no tub bath or soaking Sexual Activity: Wait until after follow-up appointment Exercise/Sports: Wait until after follow-up appointment Driving/Machine Use: No driving while taking prescription pain medication Non-emergency contact: Surgeon and Urologist Call non-emergency contact if: your pain is not controlled, your pain is worsening, you have a fever and your temperature is above 101 Follow-up/Referrals: Melania Bustos MD [Primary Care Provider] - 07/08/21 9:00 am Diet: Carb Consistent or DM2 Addtl Attending Provider Instructions: Please take all medications as prescribed and keep all follow-ups as scheduled. Please call our office at [phone] with any questions, concerns or need to reschedule appointments for any reason. We are happy to assist you. Okay to resume your Warfarin in 1-2 days if urine remains clear to pink. Call office if you have any questions. Tips for your recovery at home: Dont be alarmed by brownish or reddish blood or clots in your urine. This is a result of the procedure. This may occur off and on for weeks to months after the procedure but should continue to improve. Drink plenty of fluids during the day (enough to keep your urine very light colored). This will help keep a healthy flow of urine. Do not lift >25 lbs until your followup Avoid constipation. Please use a stool softener (Colace) for the first two weeks after your procedure Be sure to finish the antibiotics as prescribed. If you go home with a catheter, please wash tubing where it enters your body twice daily with mild soap (Dove or Dial). Once your catheter is removed, expect some blood in your urine and some burning when you urinate. You should have an appointment to have this removed, if you do not please call our office to arrange. Pending Studies at Discharge: Yes (pathology) Stand-Alone Forms: [facility] Sm[facility] C[facility] Medications and DC Order Prescriptions: New cephalexin 500 mg capsule 500 mg PO BID 7 Days Qty: 14 RF: 0 docusate sodium [Colace] 100 mg capsule 100 mg PO BID Qty: 60 RF: 0 Continued phenazopyridine [Pyridium] 200 mg tablet 200 mg PO Q8H PRN (Reason: pain) Qty: 10 RF: 0 finasteride 5 mg tablet 5 mg PO QAM Qty: 90 RF: 1 digoxin 250 mcg (0.25 mg) tablet 250 mcg PO HS Qty: 90 RF: 3 tamsulosin 0.4 mg capsule 0.4 mg PO HS Qty: 90 RF: 3 (DME) Vaddiouch Verio test strips Strip See Rx Instructions .ROUTE .MEDSUPPLY Qty: 100 RF: 3 pravastatin 20 mg tablet 20 mg PO HS Qty: 90 RF: 3 warfarin 5 mg tablet 7.5 - 10 mg PO HS Qty: 100 RF: 3 metoprolol succinate 100 mg tablet extended release 24 hr 100 mg PO QAM Qty: 90 RF: 3 metformin 500 mg tablet 1,000 mg PO BID Qty: 360 RF: 3 Myrbetriq 50 mg tablet extended release 24 hr 50 mg PO QAM 90 Days Qty: 90 RF: 1 potassium chloride 20 mEq tablet extended release 20 meq PO BID Qty: 180 RF: 3 lancets [OneTouch Delica Lancets] 30 gauge misc See Rx Instructions .ROUTE .COMPLEX Qty: 100 RF: 3 diltiazem HCl 240 mg capsule,extended release 24hr 240 mg PO QAM Qty: 90 RF: 3 furosemide 80 mg tablet 80 mg PO QAM Qty: 90 RF: 3 PreserVision AREDS-2 [phone]-mg Capsule 1 tab PO BID RF: 0 oxybutynin chloride 5 mg tablet 5 mg PO Q8H PRN (Reason: bladder spasms) Qty: 20 RF: 0 Discharge Orders: Discharge Order (Routine); Ordered 06/24/21 Ordered By: Jeanette Blair Admission Data Admit Date/Time: 06/23/21 08:32 Attending Provider: Gilbert Cat Admit Provider: Gilbert Cat Primary Care Provider: Melania Bustos Other Providers: Desi Angel ; Jose Keller ; Bry Kevin ; Chepe Andrews i ; Steven Dillon ; Ang Mo ; Graham Hong ; Marisela Welch ; Sara Rondon ; Randy Chavira ; Jocelyn Fernandez ; Mehran Solomon ; Roger Eastman ; Viviana Sams ; Niecy Kelley ; Kenton Yee ; Desi Woodall ; Zana Lynn ; Saturnino Ponce ; Guillermo Barrera ; Jose Ruiz ; Flor Bond ; Rena Chaduhary ; Gelacio Taveras ; Lilia Kent ; Vinh Garcia ; Ajit Tilley ; Isaiah Anthony ; Speedy Albert ; Juan Alberto Doty Other Interventions: Discharge Summary Assessment (RN) Last Done: 06/24/21 12:12 Coding Level of Care Code D/C DAY MANAGEMENT <30 MINS Diagnoses Benign prostatic hyperplasia with urinary obstruction N40.1; N13.8
--- NOTE | 2021-06-24 12:23 | Hospitalist Progress Note ---
Date of Service June 24, 2021 Assessment & Plan (1) Benign prostatic hyperplasia with urinary obstruction: Plan: POD #1 as HPI - Pain control per primary service- appropriate with rescue Narcan available - Antibiotics per primary service - Ly/drains/CBI- per primary service - Diet per primary service - Transfusion needs per primary service - PT/OT per primary service (2) Atrial fibrillation: Plan: Chronic permanent atrial fibrillation - On Coumadin as outpatient - last took Saturday 06/17. May resume at discharge since it will take at least 3 days for this to become therapeutic. - Last admission for uncontrolled rate was ~ 3 years ago - Continue Metoprolol, Digoxin, Diltiazem - Dig level in morning - Keep K ~ 4 and Mg ~ 2 (3) Hyperlipidemia: Plan: Continue pravastatin (4) Chronic congestive heart failure: Plan: Stable chronic- currently without acute exacerbation - As above - Continue lasix if renal indices remain normal and patient is euvol emic/hypervolemic (5) Obstructive sleep apnea: Plan: Continue with home CPAP - Patient is compliant with use - recommended to use while even napping in house if he is taking pain medication - he understood (6) Hypertension: Plan: As above. Stable (7) Diabetes mellitus: Plan: BG AC/HS with aspart sliding scale CF 20 with 1:12 ratio ADA diet (8) On anticoagulant therapy: Plan: On Coumadin for chronic Afib - Last taken 1 week ago. May resume at discharge Plan: Home today, June 24, per primary service Admission and Anticipated Discharge Date Admission Date: June 23, 2021 Subjective Alert and oriented. No acute problems. He is medically stable for discharge home today. Coumadin can be restarted today in my opinion since it will not be therapeutic for another 3 or 4 days. Review of Systems Review of Systems: Constitutional-no fever or chills ENT-no blurred vision, no double vision, no epistaxis, no sore throat Respiratory-no cough, no wheezing, no shortness of breath Cardiac-no palpitations, no chest pain, no syncope GI-no nausea, vomiting, diarrhea, melena, hematochezia -Ly catheter in place. Small amount of hematuria noted Musculoskeletal-no joint pain, no muscle tenderness Skin-no bruising, no rashes, no pruritus Neuro-no isolated weakness, no paresthesia, no weakness Psych-no depression, no anxiety Physical Exam Physical Exam: General-alert and oriented x3, no fevers, no chills HEENT-head atraumatic and normocephalic, TMs intact bilaterally, pupils equal and reactive to light, extraocular muscles intact Neck-no lymphadenopathy or thyromegaly, trachea midline Chest-clear to auscultation percussion. No rales wheezing or rhonchi Cardiac-regular rate and rhythm, normal S1 and S2, no murmurs Abdomen-normal bowel sounds, nontender, no hepatosplenomegaly Extremities-no cyanosis, clubbing, or edema Neuro-cranial nerves II through XII intact, motor and sensory function within normal limits, strength symmetrical 5/5, no focal deficits Psych-normal affect, normal mood Results & Data Results & Data ([facility]) Vital Signs (Past 12 Hours) Vital Signs Temp Pulse Pulse Pulse Resp BP Pulse Ox 06/24/21 12:12 37.2 C 78 69 18 136/71 93 06/24/21 11:13 37.2 C 69 18 136/71 93 06/24/21 07:39 37.0 C 85 20 158/77 H 90 06/24/21 07:00 77 06/24/21 03:37 37.0 C 86 20 132/78 92 Laboratory Results 06/24/21 05:53 06/24/21 05:53 PG Care Time/CCT Total # of Minutes Spent Total Time Spent with Patient: Total time spent is greater than 50% in coordination of care (as documented) at patient's floor/unit and/or counseling patient: Coding Level of Care Code 31305 Inpt Consult Level 4 Diagnoses Benign prostatic hyperplasia with urinary obstruction N40.1; N13.8 Atrial fibrillation I48.91 Hyperlipidemia E78.5 Chronic congestive heart failure I50.9 Obstructive sleep apnea G47.33 Hypertension I10 Diabetes mellitus E11.9 On anticoagulant therapy Z79.01
== END 2021-06-24 13:00 | disposition home or self-care (01) ==
LOC: 2N 08:06 → ASU 08:06

== ENCOUNTER 2025-01-17 07:54 | Observation (INO) ==
--- NOTE | 2024-12-19 13:09 | PAT Medication Instructions ---
Medication Instructions Date of Service December 19, 2024 Home Medications Medication Instructions Recorded lancets 30 gauge See Rx Instructions .Route 12/22/22 .COMPLEX ##100 pravastatin 20 mg tablet 20 mg PO HS #90 tabs 12/08/23 blood sugar diagnostic (OneTouch #100 ea 02/07/24 Verio test strips) warfarin 5 mg tablet 7.5 - 10 mg PO HS #180 tabs 02/25/24 metformin 500 mg tablet 1,000 mg (2 x 500 mg) PO BID #360 03/06/24 tabs digoxin 250 mcg (0.25 mg) tablet 250 mcg PO HS #90 tabs 09/20/24 diltiazem HCl 240 mg 240 mg PO QAM #90 caps 09/20/24 capsule,extended release 24 hr furosemide 80 mg tablet 80 mg PO QAM #90 tabs 09/20/24 vit C 250 mg-vit E 90 mg-zinc 40 mg-copper 1 [id number]-nianzo capsule (PreserVision AREDS-2) 1 tab PO BID metoprolol succinate 100 mg tablet,extended release 24 hr 50 mg PO QAM pravastatin 20 mg tablet 20 mg PO HS warfarin 5 mg tablet 7.5 - 10 mg PO HS metformin 500 mg tablet 1,000 mg (2 x 500 mg) PO BID digoxin 250 mcg (0.25 mg) tablet 250 mcg PO HS diltiazem HCl 240 mg capsule,extended release 24 hr 240 mg PO QAM furosemide 80 mg tablet 80 mg PO QAM empagliflozin 10 mg tablet (Jardiance) 10 mg PO QAM fexofenadine 180 mg tablet (Chastity Allergy) 180 mg PO DAILY PRN fluticasone propionate 50 mcg/actuation nasal spray,suspension (Allergy Relief (fluticasone)) 2 spray intranasal DAILY PRN mirabegron 50 mg tablet,extended release 24 hr (Myrbetriq) 50 mg PO QAM oxybutynin chloride 15 mg tablet,extended release 24 hr 15 mg PO QAM potassium chloride 20 mEq tablet,extended release 40 meq PO QAM STOP 3 days before surgery empagliflozin 10 mg tablet (Jardiance) 10 mg PO QAM Continue as directed fluticasone propionate 50 mcg/actuation nasal spray,suspension (Allergy Relief (fluticasone)) 2 spray intranasal DAILY PRN(if needed) ASK your prescriber and surgeon warfarin 5 mg tablet 7.5 - 10 mg PO HS STOP taking 2 weeks before surgery (or as soon as possible if surgery is within 2 weeks) vit C 250 mg-vit E 90 mg-zinc 40 mg-copper 1 [id number]-wmaenh capsule (PreserVision AREDS-2) 1 tab PO BID DO NOT take the morning of surgery metformin 500 mg tablet 1,000 mg (2 x 500 mg) PO BID furosemide 80 mg tablet 80 mg PO QAM fexofenadine 180 mg tablet (Chastity Allergy) 180 mg PO DAILY PRN mirabegron 50 mg tablet,extended release 24 hr (Myrbetriq) 50 mg PO QAM oxybutynin chloride 15 mg tablet,extended release 24 hr 15 mg PO QAM potassium chloride 20 mEq tablet,extended release 40 meq PO QAM Take morning of surgery With a small sip of water, OTHERWISE NOTHING TO EAT OR DRINK AFTER MIDNIGHT: metoprolol succinate 100 mg tablet,extended release 24 hr 50 mg PO QAM diltiazem HCl 240 mg capsule,extended release 24 hr 240 mg PO QAM Take evening before surgery pravastatin 20 mg tablet 20 mg PO HS metformin 500 mg tablet 1,000 mg (2 x 500 mg) PO BID digoxin 250 mcg (0.25 mg) tablet 250 mcg PO HS Other Notes If you have any questions please call us at [phone] or [phone] or [phone] or [phone]
--- NOTE | 2024-12-27 14:07 | Anesthesiology Consultation ---
Date of Service December 27, 2024 Assessment & Plan (1) Encounter for pre-operative examination: Chart Review Chart Review: Acceptable Risk for Surgery (pending surgeon ordered PCP clearance and response from cardio regarding CXR ) and Patient seen in Pre Admission Testing - Awaiting surgeon ordered PCP clearance 01/03/25 ([place]) - Please fax optimization note and CXR results to [facility] cardio regarding CXR results to ensure additional work up/treatment is not needed - Check coags AM DOS - Check BSG AM DOS - Patient is NOT an ideal OPJ candidate (currently 23 hour obs) Per PAT appt on 12/27/24, no recent illness/disease exposures, illness related symptoms, or recent illness/disease positive tests. Will leave to surgeon's discretion if preop Covid testing needed Cardiology office visit 11/17/24= "routine EP follow up... Feeling well since last visit... Scheduled to undergo knee surgery in January... HR and BP well controlled. Euvolemic on exam. Stable from cardiac standpoint. Patient remains on digoxin for CHF and A fib management.. optimized and cleared to undergo knee surgery as planned, given his personal history he would be a moderate cardiac risk... reasonable from a cardiac standpoint to hold warfarin for 5 days before the procedure, no briding is necessary... warfarin managed through PCP office so encouraged him to notify them he will be holding his blood thinners... caution with change of positions to minimize symptomatic orthostatic hypotension... " Mauri Sprague TURP 06/23/21= Done under [facility] with LMA #5. Atraumatic attempt Teaching & Discussion Pre-Anesthesia Teaching/Discussion Notes: Instructed NPO after midnight before surgery,except medications with 15 cc of water. Medication instructions provided according to the PAT guidelines. History Surgery Operation Date: 01/17/25 07:15 Proposed Procedures p Right Total Knee Arthroplasty - Harmeet Galaviz MD Height/Weight Height: 6 ft Weight: 125.1 kg Allergies Allergy/AdvReac Type Severity Reaction Status Date / Time No Known Drug Allergies Allergy Unknown Verified 12/19/24 11:09 Medications Home Medications Medication Instructions Recorded Confirmed Last Taken vit C 250 mg-vit E 90 mg-zinc 40 1 tab PO BID 04/03/20 12/19/24 06/09/21 18:00 mg-copper 1 bd-kckucw-vlhoyt capsule (PreserVision AREDS-2) metoprolol succinate 100 mg 50 mg PO QAM 06/29/22 12/19/24 Unknown tablet,extended release 24 hr lancets 30 gauge See Rx Instructions .Route 12/22/22 09/26/24 Unknown .COMPLEX ##100 blood sugar diagnostic (OneTouch #100 ea 02/07/24 09/26/24 Unknown Verio test strips) warfarin 5 mg tablet 7.5 - 10 mg PO HS #180 tabs 02/25/24 12/19/24 Unknown metformin 500 mg tablet 1,000 mg (2 x 500 mg) PO BID #360 03/06/24 12/19/24 Unknown tabs digoxin 250 mcg (0.25 mg) tablet 250 mcg PO HS #90 tabs 09/20/24 12/19/24 Unknown diltiazem HCl 240 mg 240 mg PO QAM #90 caps 09/20/24 12/19/24 Unknown capsule,extended release 24 hr furosemide 80 mg tablet 80 mg PO QAM #90 tabs 09/20/24 12/19/24 Unknown empagliflozin 10 mg tablet 10 mg PO QAM 12/19/24 12/19/24 Unknown (Jardiance) fexofenadine 180 mg tablet 180 mg PO DAILY PRN prn 12/19/24 12/19/24 Unknown (Chastity Allergy) fluticasone propionate 50 2 spray intranasal DAILY PRN prn 12/19/24 12/19/24 Unknown mcg/actuation nasal spray,suspension (Allergy Relief (fluticasone)) mirabegron 50 mg tablet,extended 50 mg PO QAM 12/19/24 12/19/24 Unknown release 24 hr (Myrbetriq) oxybutynin chloride 15 mg 15 mg PO QAM 12/19/24 12/19/24 Unknown tablet,extended release 24 hr potassium chloride 20 mEq 40 meq PO QAM 12/19/24 12/19/24 Unknown tablet,extended release pravastatin 20 mg tablet 20 mg PO HS #90 tabs 12/22/24 Unknown Past Medical History Medical History Atrial fibrillation on Warfarin, follows with Dr Gross Benign prostatic hyperplasia with urinary obstruction Improved per patient Chronic congestive heart failure follows with [facility] cardio Diabetes mellitus Hiatal hernia History of blood transfusion age 11 y/o with splenectomy Hyperlipidemia Hypertension half-way (current) use of anticoagulants Obstructive sleep apnea CPAP Sensorineural hearing loss (SNHL) of both ears Urge incontinence of urine Exercise / Class Metabolic Activity II 4-5 Yardwork/Stairs/Walk up hill (one flight of stairs - no chest pain or SOB ) Past Family History Family History Grandmother Diabetes Mother Stroke Denies family history of Ovarian cancer Prostate cancer Myocardial infarction Breast cancer Colorectal cancer Past Surgical History Surgical History 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 History of bladder surgery Cystoscopy, Laser Cystolitholapaxy, Transurethral Resection of the Prostate, Transurethral Resection of Bladder Tumor Large History of cardioversion History of cataract surgery bilat History of esophagogastroduodenoscopy (EGD) History of fracture of leg s/p ORIF History of tonsillectomy History of wisdom tooth extraction Hx of LASIK S/P appendectomy S/P colonoscopy 2022 S/P inguinal hernia repair S/P TURP Status post Mohs surgery LEG Past Anesthesia History No Hx of Anesthesia Complications and No Family Hx of Anesthesia Complications History of PONV No Hx of PONV and No Hx of Motion Sickness Social History Smoking Status: Never smoker Do You Dip or Chew Tobacco: No Hx Alcohol Use: Yes Alcohol type: beer alcohol intake frequency: a few times a week Hx Substance Use: No substance use type: does not use Review of Systems Patient denies chest pain, shortness of breath, dyspnea on exertion, reflux, cough, wheezing, palpitations. No hx of seizures, stroke, VT. No hx of blood clots Physical Exam Vital Signs VITALS BP 148/76 P 84 TEMP 97.4 SP02 94% RESP 16 Constitutional no acute distress - Minimal left sided mouth drooping- patient states chronic issue- denies hx of Casar palsy/CVA ENMT Mouth: no TMJ clicking Thyromental Distance: < 3.5 Finger Breadths (3.0) Mallampati Class: III Neck + limited neck extension (minimal) Respiratory normal respiratory effort; no respiratory distress Auscultation: lungs clear to auscultation bilaterally; no wheezes Cardiovascular Heart Sounds: no murmur Vessels: no carotid bruit Irregularly irregular rhythm- rate controlled Musculoskeletal Spine: no pain with cervical ROM Extremities: extremities normal to inspection Psychiatric Orientation: alert Lab Results Anesthesia Preop Results Results Anesthesia Widget: WBC 10.45 K/ul (4.8-10.8) 12/27/24 Hgb 15.5 g/dl (14.0-18.0) 12/27/24 Hct 46.0 % (42.0-52.0) 12/27/24 Plt 407 K/uL (130-400) H 12/27/24 Na 143 mmol/L (136-145) 12/27/24 K 3.3 mmol/L (3.5-5.1) L 12/27/24 Cl 100 mmol/L (98-107) 12/27/24 CO2 33 mmol/L (21-32) H 12/27/24 BUN 22 mg/dl (6-23) 12/27/24 Creat 0.71 mg/dl (0.6-1.4) 12/27/24 Glucose Level 184 mg/dl (70-99(Fasting)) H 12/27/24 PT 19.6 Seconds (9.0-12.0) H 12/27/24 PTT 38 Seconds (21-31) H 12/27/24 INR 1.9 (0.9-1.1) H 12/27/24 HA1c 6.4 % (4.5-5.6) H 12/27/24 Urine Color Yellow 12/27/24 Urine Appearance Clear (Clear) 12/27/24 Urine pH 7.5 (4.5-7.5) 12/27/24 Urine Specific Picher 1.024 (1.000-1.030) 12/27/24 Urine Protein Negative (Negative) 12/27/24 Urine Glucose (UA) Trace (Negative) H 12/27/24 Urine Ketones Negative (Negative) 12/27/24 Urine Blood Negative (Negative) 12/27/24 Urine Nitrite Negative (Negative) 12/27/24 Urine Bilirubin Negative (Negative) 12/27/24 Urine Urobilinogen Positive (Negative) H 12/27/24 Urine Leukocyte Esterase Negative (Negative) 12/27/24 Blood Type O Positive 12/27/24 Antibody Screen NEGATIVE 12/27/24 Testing Laboratory Results Elevated coags- on Coumadin Electrocardiogram Date: 11/17/24 Findings: + AFIB @ (84bpm) Left axis deviation RBBB High QRS voltage may be normal variant or due to LVE Septal infarct, age undetermined When compared to EKG from Dec 07, 2022- no significant change was found per cardio Chest X-Ray Date: 12/27/24 FINDINGS: Stable cardiomegaly with pulmonary vascular congestion. No consolidation or pleural effusion. IMPRESSION: Stable mild CHF. (Will send optimization note to cardio to ensure no additional treatment/work up needed prior to surgery) Echocardiogram Date: 07/08/22 EF: 55-59% LV Function: normal RWMA: + none Other Findings: + LVH (mild/concentric ) and + diastolic dysfunction (suggested by LAE) RV is moderately dilated LA is severely enlarged Mild AV sclerosis is present. No aortic valve stenosis Mild TR Ascending thoracic aorta is mildly enlarged Proximal inferior vena cava is dilated. PASP is 45.9mmHg. Moderate pulm HTN No significant change compared to prior study in 2017 per cardio
--- NOTE | 2025-01-16 20:44 | History & Physical Report ---
Date of Service January 16, 2025 Assessment & Plan (1) Bilateral primary osteoarthritis of knee: Plan: End-stage bilateral knee osteoarthritis presenting for right total knee replacement Singletary & Nephew journey knee replacement. History of Present Illness Chief Complaint: Chronic right knee pain greater than left Primary Care Provider: Jessi Batres DO 74-year-old male chronic right knee pain extensive conservative management with multiple injections. Patient denies headaches, sweats, fevers, chills, double vision, blurred vision, cough, sore throat, dysphagia, chest pain, sob, wheezing, n/v/d/c, numbness, tingling, fatigue, urinary symptoms, mood disorders. ROS positive for congestive heart failure, irregular heartbeat, sleep apnea loud snoring, hiatal hernia, obesity. Allergies Allergy/AdvReac Type Severity Reaction Status Date / Time No Known Drug Allergies Allergy Unknown Verified 01/03/25 14:00 Home Medications Medication Instructions Recorded Confirmed Type vit C 250 mg-vit E 90 mg-zinc 40 1 tab PO BID 04/03/20 01/03/25 History mg-copper 1 [id number] capsule (PreserVision AREDS-2) metoprolol succinate 100 mg 50 mg PO QAM 06/29/22 01/03/25 History tablet,extended release 24 hr lancets 30 gauge See Rx Instructions .Route 12/22/22 01/03/25 Rx .COMPLEX ##100 blood sugar diagnostic (OneTouch #100 ea 02/07/24 01/03/25 Rx Verio test strips) warfarin 5 mg tablet 7.5 - 10 mg PO HS #180 tabs 02/25/24 01/03/25 Rx metformin 500 mg tablet 1,000 mg (2 x 500 mg) PO BID #360 03/06/24 01/03/25 Rx tabs digoxin 250 mcg (0.25 mg) tablet 250 mcg PO HS #90 tabs 09/20/24 01/03/25 Rx diltiazem HCl 240 mg 240 mg PO QAM #90 caps 09/20/24 01/03/25 Rx capsule,extended release 24 hr furosemide 80 mg tablet 80 mg PO QAM #90 tabs 09/20/24 01/03/25 Rx empagliflozin 10 mg tablet 10 mg PO QAM 12/19/24 01/03/25 History (Jardiance) fexofenadine 180 mg tablet 180 mg PO DAILY PRN prn 12/19/24 01/03/25 History (Chastity Allergy) fluticasone propionate 50 2 spray intranasal DAILY PRN prn 12/19/24 01/03/25 History mcg/actuation nasal spray,suspension (Allergy Relief (fluticasone)) mirabegron 50 mg tablet,extended 50 mg PO QAM 12/19/24 01/03/25 History release 24 hr (Myrbetriq) oxybutynin chloride 15 mg 15 mg PO QAM 12/19/24 01/03/25 History tablet,extended release 24 hr potassium chloride 20 mEq 40 meq PO QAM 12/19/24 01/03/25 History tablet,extended release pravastatin 20 mg tablet 20 mg PO HS #90 tabs 12/22/24 01/03/25 Rx Past Med/Surg History Problem List (Updated 01/16/25 @ 20:43 by Harmeet Galaviz MD) Bilateral primary osteoarthritis of knee Encounter for pre-operative examination Sensorineural hearing loss (SNHL) of both ears Chronic anticoagulation Leg hematoma Bladder stones On anticoagulant therapy Diabetes mellitus (Chronic) Urge incontinence of urine (Chronic) Obstructive sleep apnea (Chronic) CPAP-compliant Obesity (Chronic) Hypertension (Chronic) Hyperlipidemia (Chronic) Chronic congestive heart failure (Chronic) Follows with Dr. Quiles with [facility], EF 58% on echo 2017 Benign prostatic hyperplasia with urinary obstruction (Chronic) Atrial fibrillation (Chronic) Dx Mar 2012 - follows with Dr. 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) use of anticoagulants Sensorineural hearing loss (SNHL) of both ears Urge incontinence of urine Obstructive sleep apnea CPAP Hypertension Hyperlipidemia Diabetes mellitus Chronic congestive heart failure follows with [facility] Benign prostatic hyperplasia with urinary obstruction Improved per patient Atrial fibrillation on Warfarin, follows with Dr Gross History of blood transfusion age 11 y/o with splenectomy Hiatal hernia Surgical History S/P TURP History of bladder surgery Cystoscopy, Laser Cystolitholapaxy, Transurethral Resection of the Prostate, Transurethral Resection of Bladder Tumor Large Status post Mohs surgery LEG History of cataract surgery bilat History of esophagogastroduodenoscopy (EGD) Hx of LASIK History of cardioversion History of fracture of leg s/p ORIF History of wisdom tooth extraction History of tonsillectomy 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 S/P inguinal hernia repair S/P colonoscopy 2022 S/P appendectomy Family History Grandmother Diabetes Mother Stroke Denies family history of Ovarian cancer Prostate cancer Myocardial infarction Breast cancer Colorectal cancer Social History Smoking Status: Never smoker Second Hand Exposure: No; Do You Dip or Chew Tobacco: No; Tobacco Cessation Education Requested by Patient: No Hx Alcohol Use: Yes Alcohol type: beer Alcohol Intake Frequency: 2-4 x/Month Hx Substance Use: No Preferred Language: Czech Communication Ability: Effective Visual Impairment: Limited Hearing Ability: Normal 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 Hose Required: No Beliefs That Will Affect Care: None marital status: Current Living Situation: Spouse current occupational status: retired How many Children do You have: 0 Other Information That Helps Us Care for You: No Feels Safe at Home: Yes Safety Concerns: Feels Safe At This Time Childhood Exposure to Second-Hand Smoke: No Diet: regular caffeine: No (decaf coffee) during the past year weight has: remained stable Dental Care, Regularly: Yes Physical Activity Frequency: Daily Physical Activity Frequency Comment: golf, gym x5d/wk Seatbelt Use: always Sunscreen Use: No Do you think of yourself as: straight/heterosexual Gender Identity: Male Assistive Devices: Glasses and Hearing Aid - Bilateral Review of Systems All systems reviewed & are unremarkable except as noted in HPI & below Physical Exam Constitutional: WD/WN, vitals as above Respiratory: normal respiratory effort; no respiratory distress Cardiovascular: Rate/Rhythm: regular rate and + irregularly irregular; + abnormal rhythm, not bradycardic and not tachycardic No murmur. Skin: no rashes, warm and dry Neurologic: normal touch/pain/proprioception Psychiatric: A+Ox3, euthymic affect Results & Data Diagnostic Findings 4 view x-rays right knee demonstrates a valgus knee bone loss in the lateral compartment on the femur and tibial side more valgus alignment than the right kn ee and the left knee also has grade 4 [id number] lateral compartment osteoarthritis on weightbearing flexion views. Patella is centrally aligned.
[~2025-01-17 07:54] MED LIST changes: +BUPIVACAINE 0.5 % 5 MG/1 ML PF 10ML VIAL ONE; -LR 15ML/HR IV SCH; +MIDAZOLAM HCL 1 MG/ML 2ML VIAL ONE; +PROPOFOL IV EMULSION 10 MG/ML 100 ML VIAL IV ONE; +ROPIVACAINE 0.5% 5 MG/ML 30 ML VIAL ONE
[2025-01-17] MEDS ORDERED: LIDOCAINE 2% 2 ML VIAL/AMP(20MG/ML) INFIL ONE ×2 (08:05→08:14)
[2025-01-17] MEDS ORDERED: DexMEDEtomidine HCL IV 100 MCG/ML VIAL IV ONE (08:06)
[2025-01-17] MEDS ORDERED: GLYCOPYRROLATE 0.2 MG/ML VIAL ONE (08:10)
[2025-01-17] MEDS: FAMOTIDINE 20 MG TAB PO SCH (08:19)
[2025-01-17] MEDS: ACETAMINOPHEN 500 MG TAB PO SCH ×2 (08:19→16:01)
[2025-01-17] MEDS: GABAPENTIN 300 MG CAP PO SCH (08:19)
[2025-01-17] MEDS: CeleBREX 200 MG CAP PO SCH (08:19)
[2025-01-17] MEDS: LR 60ML/HR IV SCH (08:19)
[2025-01-17] MEDS: METOCLOPRAMIDE HCL 10 MG TABLET PO SCH (08:19)
[2025-01-17] MEDS: LR 500ML BOLUS, THEN 15ML/HR IV SCH (08:31)
[2025-01-17 09:25] LABS: INR 1.1 (0.9-1.1); Partial Thromboplastin Time 31 Seconds (21-31); Prothrombin Time 11.5 Seconds (9.0-12.0)
[2025-01-17] MEDS ORDERED: ATROPINE SULFATE 0.1 MG/ML 10ML SYR IV PRN (09:46)
[2025-01-17] MEDS ORDERED: ONDANSETRON INJ 2 MG/ML 2 ML VIAL IV PRN ×2 (09:46→14:30)
[2025-01-17] MEDS: TRANEXAMIC ACID 1,000 MG **IV Pre-op IV SCH (10:11)
--- NOTE | 2025-01-17 10:13 | History & Physical Bridge Note ---
Date of Service January 17, 2025 History & Physical Bridge Note I have examined the patient, reviewed the History & Physical and in the interval since the performance of the History & Physical I have noted the following changes of clinical significance: no changes noted
[2025-01-17] MEDS: ceFAZolin 3000MG 3,000 MG/72.5 ML BAG IV SCH (10:36)
[2025-01-17] MEDS ORDERED: ONDANSETRON INJ 2 MG/ML 2 ML VIAL ONE (11:09)
[2025-01-17] MEDS ORDERED: DEXAMETHASONE SOD INJ 4 MG/ML VIAL ONE (11:09)
[2025-01-17] MEDS: ROPIV 0.5% 246mg, Ketorolac 30mg, EPINEPHrine 0.5mg in NSS INFIL SCH (12:45)
[2025-01-17] MEDS: ORTHO JOINT ANESTHETIC ONE (12:55)
--- NOTE | 2025-01-17 13:36 | Operative Report ---
Post Operative Report Pre & Post Diagnosis Operation Date: 01/17/25 09:40 Pre-Op Diagnosis: Bilateral primary osteoarthritis of knee Post-Op Diagnosis: Bilateral primary osteoarthritis of knee I identified the patient and participated in the time-out.: Yes Procedure Operation Date: 01/17/25 09:40 Actual Procedures p Right Total Knee Arthroplasty(Right), application roberto and Acticoat superficial wound VAC- Harmeet Galaviz MD Surgeon Harmeet Galaviz MD Criminal Research Specialist Rigo GARRETT Estimated Blood Loss 30 Findings Consistent with Post-Op Diagnosis Specimens Bone cuts Drains 2 Hemovac Anesthesia Type MAC Spinal Regional Complications none Disposition Disposition: Recovery Room Indications 74-year-old male with extensive conservative management for bilateral knee osteoarthritis with multiple injections over the years. His knees are now [id number] bilaterally with the right is a more severe valgus knee with some bone loss in the lateral compartment and instability. Description of Procedure The patient was taken to the operating room and anesthetized under spinal MAC regional block. Patient was placed supine on the the operating table. A pneumatic tourniquet was placed about the right moderately obese upper thigh. The knee exam demonstrated some thigh leg obesity some edema below the knee level skins intact and knee effusion and laxity the MCL and positive Karine exam and tight lateral compartment with no pseudolaxity with 0 through 125 degrees range of motion. The involved leg was elevated exsanguinated with Esmarch bandage and the pneumatic tourniquet was raised to 350 millimeters mercury. A longitudinal incision was made across the anterior knee. Skin flaps were elevated. An incision was made into the medial retinaculum and extended up into the mid third of the quadriceps tendon and extended down to the tibial tubercle. Intra-articular findings demonstrated marked synovitis throughout the knee with a markedly red irritated synovial tissue with large fronds of inflamed synovium and fat. There was tricompartmental osteoarthritis mainly lateral compartment with some hypoplasia of the lateral femoral condyle and complete eburnated bone in the lateral compartment and bone loss on the tibia posterior laterally. Anterior cruciate ligament was torn. Lateral meniscus was torn and extruded laterally. Popliteus tendon was frayed and partially torn with tendinopathy. The knee was exposed by excising anterior cruciate ligament remnant and the posterior cruciate ligament and menisci. The infrapatellar fat pad was resected. The fat pad over the anterior femur at the upper aspect of the articular surface was resected for placement of the component in that area. A subperiosteal peel lateral release was performed around the patella. Aqua mantis was used for hemostasis throughout the procedure. The Singletary [employer] Nephew journey 2.0 posterior stabilized total knee arthroplasty system was utilized for the procedure. The custom femoral cutting guide was pinned in position. The distal femoral cut was made. The size 6, 5 in 1 cutting block was placed. The anterior posterior and chamfer cuts were made. The knee was extended and a free hand cut technique was performed to the patella. The patella width was measured and the width was reproduced using an oval 38 mm patella component. The excess lateral facet was beveled off to prevent any impingement. 3 drill holes are made for the patella component pegs. The tibia was then subluxed. The custom tibial cutting block was pinned in position alignment verified with the alignment lewis and then the proximal tibial cut was made with the oscillating saw. Lamina securities vault supervisor was placed to view the posterior condyles both had large osteophytes that were removed with a curved osteotome and angled curette. Flexion and extension gaps were balanced. Lateral capsular and posterior lateral capsular releases including IT band release off of the tibia and complete release of the popliteus tendon and some anterior resection of the fibular collateral ligament releases were all required. The size 6 tibial trial was externally rotated in line with the tibial tubercle and pinned in position. The punch for the stem was used. The femoral trial was inserted and centered the notch cutting devices were used and the collet was placed. Tibial trials were used for the insert. The size 15 constrained trial gave balanced ligaments through full range of motion. Patella tracking was assessed with range of motion. The patella tracked with some lateral tilt so I did do a lateral release leaving the synovium intact and this corrected patella tracking to central without tilt.. The trials were removed. The Orthomix anesthetic cocktail was injected per protocol. Aqua mantis was then used to sure all visible bleeders were cauterized. The cut bone surfaces and soft tissue were copiously irrigated with pulsatile lavage saline solution. The final components were cemented with Refobacin cement. The final components were Singletary & Nephew journey 2.0 size 6 right femoral component with a 6 right tibial component with a 15 constrained right tibial polyethylene and 38 mm oval polyethylene patella. Xperience irrigation was placed over metal tray prior to polyethyle insertion. After the cement cured, the knee was then copiously irrigated with pulsatile lavage Xperience solution. 2 drains were brought out laterally connected to Hemovac. The quadriceps tendon and medial retinaculum were closed with interrupted [id number] sutures using #2 FiberWire in the area of the medial retinaculum and distal quadriceps tendon. Additional sutures were placed at the apex of the quadriceps tendon split proximally and at the level of the tibial polyethylene. A 0 strata fix running locking suture was placed from the superior quadriceps split down to the medial retinaculum inferior pole of the patella level. Below that level interrupted number#1 Vicryl sutures were used to repair the medial retinaculum. The knee was taken through full range of motion and repair was secure. Knee range of motion was 0 through 130 degrees. the subcutaneous tissues were closed with 2-0 Vicryl sutures. The skin was closed with surgical donna. A roberto and Acticoat superficial wound VAC was applied. The tourniquet was let down and the patient had good capillary refill to the extremity. The patient tolerated the procedure well. My physician higher level teaching assistant Rigo GARRETT participated as first breaker feeder and was integral part in all aspects of the procedure including prepping, draping, leg positioning, soft tissue retraction, instrument management and assisted in the closure , superficial wound VAC application and will participate in postoperative care the patient. I attest to the content of the Intraoperative Record and any orders documented therein. Any exceptions are noted below.
--- NOTE | 2025-01-17 13:52 | XRay Report ---
XR knee RT 1 or 2V routine CLINICAL HISTORY: Surgical Post Op COMPARISON: None FINDINGS: Right knee prosthesis has no hardware complication. There is expected soft tissue gas. Pos toperative drain is present. Skin donna are present. IMPRESSION: Unremarkable postoperative exam. ACT 112: Negative or not required by law. Electronically signed by: Baudilio Kramer M.D. 01/17/2025 1:51 PM
[2025-01-17] MEDS ORDERED: NALOXONE HCL 0.4 MG/1 ML VIAL/CARP IV PRN (14:30)
[2025-01-17] MEDS ORDERED: METOCLOPRAMIDE HCL INJ 5 MG/ML 2 ML VIAL IV PRN (14:30)
[2025-01-17] MEDS ORDERED: HYDROmorphone INJ 0.5 MG/0.5 ML SYR IV PRN (14:30)
[2025-01-17] MEDS ORDERED: FEXOFENADINE HCL 180 MG TAB PO PRN (14:30)
[2025-01-17] MEDS ORDERED: LANCETS SCH (14:30)
[2025-01-17] MEDS ORDERED: ALUMINUM/MAGNESIUM SUSP 30 ML UDC PO PRN (14:30)
[2025-01-17] MEDS ORDERED: KETOROLAC TROMETHAMINE 15 MG/ML VIAL IV PRN (14:30)
[2025-01-17] MEDS ORDERED: MAGNESIUM HYDROXIDE SUSP 30 ML UDC PO PRN (14:30)
[2025-01-17] MEDS ORDERED: PHARMACY GLYCEMIC MGMT CONSULT PRN (14:30)
[2025-01-17] MEDS ORDERED: diphenhydrAMINE Capsule 25 MG CAP PO PRN (14:30)
[2025-01-17] MEDS ORDERED: FLUTICASONE PROPIONATE NA SPR 16 GM BTL PRN (14:30)
[2025-01-17] MEDS ORDERED: CARBOHYDRATES FOR HYPOGLYCEMIA PO PRN (15:00)
[2025-01-17] MEDS ORDERED: GLUCOSE 10 TAB/TUBE PO PRN (15:00)
[2025-01-17] MEDS ORDERED: GLUCAGON FOR INJ 1 MG VIAL SQ PRN (15:00)
[2025-01-17] MEDS ORDERED: GLUCOSE 40% GEL 15 GM TUBE PO PRN (15:00)
[2025-01-17] MEDS ORDERED: DEXTROSE 50% 50 ML SYRINGE IV PRN (15:00)
--- NOTE | 2025-01-17 15:00 | Pharmacy Report ---
Pharmacy Glycemic Short Note 2 - Date of Service January 17, 2025 - Glycemic Short BSG Results (Last 24 hours): 01/17/25 01/17/25 08:07 13:35 POC Glucose 151 H 139 H OUTPATIENT ANTIDIABETIC REGIMEN: * Metformin 1000 mg PO BID * Jardiance 10 mg PO Daily HbA1c: * 6.4% (12/27/24) ASSESSMENT: * 74 yo M admitted on 01/17/25 postoperatively following a right total knee arthroplasty with Dr. Galaviz. Pharmacy has been consulted to assist with inpatient glycemic management. Patient is a Type 2 diabetic as an outpatient. Please refer to outpatient regimen and most recent HbA1c above. * Preop BSG was 151 mg/dL. Postop BSG down to 139 mg/dL. Patient received 4 mg of IV dexamethasone periop. Scheduled to receive a one time dose of 10 mg IV Dexamethasone tomorrow morning. Ordered a T2DM diet, will follow to see if patient tolerates. * Will start Novolog based on weight/stress of 2 for now. No basal until dinner BSG returns this evening. Will likely need another one time dose of basal for tomorrow morning. Patient will be receiving 10 mg of Jardiance every morning due to heart failure diagnosis. PLAN FOR INPATIENT GLYCEMIC CONTROL: * Hold Metformin * Jardiance 10 mg PO daily * Basal insulin * 10 units x 1 dose tonight and tomorrow morning * Bolus insulin * NovoLog per scale ACHS or Q6hrs while NPO * Goal Range: Low 110 mg/dL - High 140 mg/dL * Correction Factor: 20 mg/dL/unit * Nutritional / Prandial insulin per carb ratio of 1 unit per 6 grams CHO consumed
[2025-01-17] MEDS: SODIUM CHLORIDE 0.9% 1,000 ML IV SCH (15:51)
[2025-01-17] MEDS ORDERED: PHENYLEPHRINE HCL 10 MG/ML VIAL ONE (16:46)
[2025-01-17] MEDS: INSULIN ASPART PER UNIT CHARGE SC SCH (17:33)
[2025-01-17] MEDS: WARFARIN SOD 7.5 MG TAB PO SCH (17:33)
--- NOTE | 2025-01-17 19:17 | Hospitalist Consultation ---
Date of Consultation January 17, 2025 History of Present Illness Reason for Consultation: Co-management of: 1. HTN, on home-scheduled metoprolol succinate 100mg tablet, 0.5 tablet PO qam, diltiazem 240mg PO qam, lasix 80mg PO qam. 2. Chronic / persistent atrial fibrillation, on home-scheduled metoprolol succinate 100mg tablet, 0.5 tablet PO qam, diltiazem 240mg PO qam, digoxin 250ug PO qhs, and warfarin 7.5mg - 10mg PO qhs. 3. Chronic diastolic CHF with preserved LVEF 55-59% and severe left atrial enlargement, suggestive of LV diastolic dysfunction (as noted on 07/08/2022, 12:41pm TTE, CARDS Dr. Jenelle Mock), on home-scheduled metoprolol succinate 100mg tablet, 0.5 tablet PO qam, diltiazem 240mg PO qam, digoxin 250ug PO qhs, and lasix 80mg PO qam. 4. Non-insulin dependent DM2 with HbA1c 6.4% (12/27/2024, 2:24pm), on home- scheduled metformin 1000mg PO bid and empagliflozin 10mg PO qam. 5. Hyperlipidemia, on home-scheduled pravastatin 20mg PO qhs. 6. Urinary incontinence, on home-scheduled mirabegron 50mg PO daily and oxybutynin 15mg PO qam. Requesting Physician: [facility] Orthopedic Surgeon Dr. Harmeet Galaviz Attending Physician: Harmeet Galaviz MD History of Present Illness 74 years old male with PMH of FULL CODE @ home, obesity with BMI 37.1 (height 182.9 cm; weight 124.1 kg), 1. HTN, on home-scheduled metoprolol succinate 100mg tablet, 0.5 tablet PO qam, diltiazem 240mg PO qam, lasix 80mg PO qam. 2. Chronic / persistent atrial fibrillation, on home-scheduled metoprolol succinate 100mg tablet, 0.5 tablet PO qam, diltiazem 240mg PO qam, digoxin 250ug PO qhs, and warfarin 7.5mg - 10mg PO qhs. 3. Chronic diastolic CHF with preserved LVEF 55-59% and severe left atrial enlargement, suggestive of LV diastolic dysfunction (as noted on 07/08/2022, 12:41pm TTE, CARDS Dr. Jenelle Mock), on home-scheduled metoprolol succinate 100mg tablet, 0.5 tablet PO qam, diltiazem 240mg PO qam, digoxin 250ug PO qhs, and lasix 80mg PO qam. 4. Non-insulin dependent DM2 with HbA1c 6.4% (12/27/2024, 2:24pm), on home- scheduled metformin 1000mg PO bid and empagliflozin 10mg PO qam. 5. Hyperlipidemia, on home-scheduled pravastatin 20mg PO qhs. 6. Urinary incontinence, on home-scheduled mirabegron 50mg PO daily and oxybutynin 15mg PO qam. Patient also suffers from osteoarthritis, particularly affecting the right knee, and for which patient underwent elective right total knee arthroplasty (01/17/2025, 9:40am) @ [facility] with Orthopedic Surgeon Dr. Harmeet Galaviz. Patient subsequently returned to his room @ [facility] and Hospitalist Service was subsequently consulted to co-manage: 1. HTN, on home-scheduled metoprolol succinate 100mg tablet, 0.5 tablet PO qam, diltiazem 240mg PO qam, lasix 80mg PO qam. 2. Chronic / persistent atrial fibrillation, on home-scheduled metoprolol succinate 100mg tablet, 0.5 tablet PO qam, diltiazem 240mg PO qam, digoxin 250ug PO qhs, and warfarin 7.5mg - 10mg PO qhs. 3. Chronic diastolic CHF with preserved LVEF 55-59% and severe left atrial enlargement, suggestive of LV diastolic dysfunction (as noted on 07/08/2022, 12:41pm TTE, CARDS Dr. Jenelle Mock), on home-scheduled metoprolol succinate 100mg tablet, 0.5 tablet PO qam, diltiazem 240mg PO qam, digoxin 250ug PO qhs, and lasix 80mg PO qam. 4. Non-insulin dependent DM2 with HbA1c 6.4% (12/27/2024, 2:24pm), on home- scheduled metformin 1000mg PO bid and empagliflozin 10mg PO qam. 5. Hyperlipidemia, on home-scheduled pravastatin 20mg PO qhs. 6. Urinary incontinence, on home-scheduled mirabegron 50mg PO daily and oxybutynin 15mg PO qam. Hospitalist Service subsequently recommends that patient continue (and in the case of warfarin 7.5mg - 10mg PO qhs, patient restart warfarin 7.5mg PO q5:33pm on 01/17/2025 with INR 1.1 (01/17/2025, 7:57am) with checking INR in the 01/18/2025 am as patient strives to attain and then maintain a therapeutic INR range of 2.0 to 3.0. Of note, no bridging agent with heparin infusion or lovenox 1mg/kg SQ q12 will be utilized in this patient in order to avoid the potential risk for patient to develop hematoma in right total knee arthroplasty post-operatively.) all of the following medications listed below: 1. Home-scheduled metoprolol succinate 100mg tablet, 0.5 tablet PO qam, diltiazem 240mg PO qam, lasix 80mg PO qam. 2. Home-scheduled metoprolol succinate 100mg tablet, 0.5 tablet PO qam, diltiazem 240mg PO qam, digoxin 250ug PO qhs, and warfarin 7.5mg - 10mg PO qhs. 3. Home-scheduled metoprolol succinate 100mg tablet, 0.5 tablet PO qam, diltiazem 240mg PO qam, digoxin 250ug PO qhs, and lasix 80mg PO qam. 4. Home-scheduled metformin 1000mg PO bid and empagliflozin 10mg PO qam. 5. Home-scheduled pravastatin 20mg PO qhs. 6. Home-scheduled mirabegron 50mg PO daily and oxybutynin 15mg PO qam. Allergies Allergy/AdvReac Type Severity Reaction Status Date / Time No Known Drug Allergies Allergy Unknown Verified 01/03/25 14:00 Home Medications Medication Instructions Recorded Confirmed Type vit C 250 mg-vit E 90 mg-zinc 40 1 tab PO BID 04/03/20 01/17/25 History mg-copper 1 [id number] capsule (PreserVision AREDS-2) metoprolol succinate 100 mg 50 mg PO QAM 06/29/22 01/17/25 History tablet,extended release 24 hr lancets 30 gauge See Rx Instructions .Route 12/22/22 01/17/25 Rx .COMPLEX ##100 blood sugar diagnostic (OneTouch #100 ea 02/07/24 01/03/25 Rx Verio test strips) warfarin 5 mg tablet 7.5 - 10 mg PO HS #180 tabs 02/25/24 01/17/25 Rx metformin 500 mg tablet 1,000 mg (2 x 500 mg) PO BID #360 03/06/24 01/17/25 Rx tabs digoxin 250 mcg (0.25 mg) tablet 250 mcg PO HS #90 tabs 09/20/24 01/17/25 Rx diltiazem HCl 240 mg 240 mg PO QAM #90 caps 09/20/24 01/17/25 Rx capsule,extended release 24 hr furosemide 80 mg tablet 80 mg PO QAM #90 tabs 09/20/24 01/17/25 Rx empagliflozin 10 mg tablet 10 mg PO QAM 12/19/24 01/17/25 History (Jardiance) fexofenadine 180 mg tablet 180 mg PO DAILY PRN prn 12/19/24 01/17/25 History (Chastity Allergy) fluticasone propionate 50 2 spray intranasal DAILY PRN prn 12/19/24 01/17/25 History mcg/actuation nasal spray,suspension (Allergy Relief (fluticasone)) mirabegron 50 mg tablet,extended 50 mg PO QAM 12/19/24 01/17/25 History release 24 hr (Myrbetriq) oxybutynin chloride 15 mg 15 mg PO QAM 12/19/24 01/17/25 History tablet,extended release 24 hr potassium chloride 20 mEq 40 meq PO QAM 12/19/24 01/17/25 History tablet,extended release pravastatin 20 mg tablet 20 mg PO HS #90 tabs 12/22/24 01/17/25 Rx acetaminophen 500 mg tablet 1,000 mg (2 x 500 mg) PO Q8H #90 01/17/25 Rx (Tylenol Extra Strength) tabs cefadroxil 500 mg capsule 500 mg PO Q12H #28 caps 01/17/25 Rx oxycodone 5 mg tablet 5 mg PO Q4H PRN pain #30 tabs 01/17/25 Rx Patient History Medical History retirement (current) use of anticoagulants Sensorineural hearing loss (SNHL) of both ears Urge incontinence of urine Obstructive sleep apnea CPAP Hypertension Hyperlipidemia Diabetes mellitus Chronic congestive heart failure follows with [facility] cardio Benign prostatic hyperplasia with urinary obstruction Improved per patient Atrial fibrillation on Warfarin, follows with Dr Gross History of blood transfusion age 11 y/o with splenectomy Hiatal hernia Surgical History S/P TURP History of bladder surgery Cystoscopy, Laser Cystolitholapaxy, Transurethral Resection of the Prostate, Transurethral Resection of Bladder Tumor Large Status post Mohs surgery LEG History of cataract surgery bilat History of esophagogastroduodenoscopy (EGD) Hx of LASIK History of cardioversion History of fracture of leg s/p ORIF History of wisdom tooth extraction History of tonsillectomy 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 Of note, patient lost his first to acute CVA when his first was just 58 years of age. No problems noted. 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: No Beliefs That Will Affect Care: None marital status: Current Living Situation: Spouse current occupational status: retired How many Children do You have: 0 Other Information That Helps Us Care for You: No Feels Safe at Home: Yes Safety Concerns: Feels Safe At This Time Childhood Exposure to Second-Hand Smoke: No Diet: regular caffeine: No (decaf coffee) during the past year weight has: remained stable Dental Care, Regularly: Yes Physical Activity Frequency: Daily Physical Activity Frequency Comment: golf, gym x5d/wk Seatbelt Use: always Sunscreen Use: No Do you think of yourself as: straight/heterosexual Gender Identity: Male Assistive Devices: Glasses Review of Systems Constitutional: Negative for antecedent/coincident fevers, chills, diaphoresis, cough, wheeze, sore throat, hemoptysis, chest pains, palpitations, pleurisy, nausea, vomiting, diarrhea, abdominal pain, pelvic pain, hematemesis, hematochezia, melena, hematuria, dysuria, frequency, urgency, headaches, dizziness, lightheadedness, visual changes, hearing changes, weakness, falls, syncope, trauma, travel history, sick contacts, or food/drug ingestions novel or new. All other review of systems are reported as negative by the patient on 01/17/2025. Physical Exam Physical Exam: General: Comfortable, cooperative, coherent. Wide awake and alert. Not confused, lethargic, or obtunded. Patient speaks in complete, fluent, and articulate sentences without pause, interruption, cough, or wheeze. HEENT: NC/AT. EOMI. PERRL. No nystagmus, gaze paresis, anisocoria, miosis, mydriasis, chemosis, hyphema, scleral injection, conjunctivitis, or pterygium. No otorrhea. No rhinorrhea. Neck: Supple, no stridor, bruit, or goiter. Jugular venous pressure 5cm above the sternal angle of Beau, which is typically 5 cm above the right atrium. Lymph: No anterior/posterior cervical lymphadenopathy, supraclavicular/infraclavicular lymphadenopathy, axilla/epitrochlear/inguinal lymphadenopathy. Chest: Symmetric rise and fall with respirations. Non-tender to palpation. Heart: RRR, S1 and S2. No S3 or S4 summation gallop. No tripartite friction rub. No murmur. Lungs: Clear to auscultation and percussion. No audible expiratory wheeze, egophony, pectoriloquy, increase in tactile fremitus, or flatness/dullness to percussion at the bases. Abd: Soft, non-tender, non-distended. Bowel sounds auscultated in all 4 quadrants. No rebound, guarding, Jenkins's sign, or organomegaly. Ext: No clubbing, cyanosis, or edema. 2+ pedal pulses bilaterally. Skin: No decubitus ulcer, exanthem, or enanthem. Neuro: No tremors, tics, or myoclonus. DTR+. Urology: No badillo catheter. No urethral discharge. Results & Data Results & Data Vital Signs (Past 12 Hours) Vital Signs Temp Pulse Pulse Resp BP Pulse Ox O2 Del Method 01/17/25 17:00 36.5 C 96 H 17 145/67 H 93 Room Air 01/17/25 15:49 36.4 C L 90 16 153/86 H 94 Nasal Cannula 01/17/25 15:00 36.7 C 85 22 152/90 H 92 Room Air 01/17/25 14:30 36.4 C L 81 22 160/86 H 92 Room Air 01/17/25 14:10 75 20 148/83 H 94 Nasal Cannula 01/17/25 13:55 36.3 C L 78 24 141/87 H 98 Nasal Cannula 01/17/25 13:45 80 18 149/95 H 92 Nasal Cannula 01/17/25 13:35 85 25 H 149/80 H 92 Nasal Cannula 01/17/25 13:28 36.0 C L 85 16 151/83 H 91 Room Air 01/17/25 08:11 Room Air 01/17/25 08:11 36.7 C 89 20 181/120 H 94 Room Air O2 Flow Rate 01/17/25 17:00 01/17/25 15:49 01/17/25 15:00 01/17/25 14:30 01/17/25 14:10 2 01/17/25 13:55 2 01/17/25 13:45 2 01/17/25 13:35 2 01/17/25 13:28 01/17/25 08:11 01/17/25 08:11 Laboratory Results INR 1.1 (01/17/2025, 7:57am). Diagnostic Findings Right knee x-ray (01/17/2025, 1:28pm): Right knee prosthesis has no hardware complication. There is expected soft tissue gas. Postoperative drain is present. Skin donna are present Medications Administered Warfarin 7.5mg PO q5:33pm on 01/17/2025 with INR 1.1 (01/17/2025, 7:57am)). Check INR in the 01/18/2025 am as patient strives to attain and then maintain a therapeutic INR range of 2.0 to 3.0 Of note, no bridging agent with heparin infusion or lovenox 1mg/kg SQ q12 will be utilized in this patient in order to avoid the potential risk for patient to develop hematoma in right total knee arthroplasty post-operatively. PG Care Time/CCT Total # of Minutes Spent Total Time Spent with Patient: Total time spent is greater than 50% in coordination of care (as documented) at patient's floor/unit and/or counseling patient: Coding Level of Care Code 94750 IN/OBS CONSULT LVL 3,45M
[2025-01-17] MEDS: TRANEXAMIC ACID / 0.7% NACL 1,000 MG/100 ML BAG IV SCH (19:55)
[2025-01-17] MEDS: DOCUSATE SODIUM 100 MG CAP PO SCH (21:25)
[2025-01-17] MEDS: SENNA 8.6 MG TAB PO SCH (21:26)
[2025-01-17] MEDS: PRAVASTATIN SOD 20 MG TAB PO SCH (21:26)
[2025-01-17] MEDS: DIGOXIN 0.25 MG TAB PO SCH (21:32)
[2025-01-17] MEDS: LANTUS PER UNIT CHARGE SC SCH (22:40)
[2025-01-18 07:29] VITALS: RESP 16; TEMP 97.7; O2SAT 93
[2025-01-18] MEDS: MULTIVITAMIN TAB PO SCH (07:39)
[2025-01-18] MEDS: EMPAGLIFLOZIN 10 MG TAB PO SCH (07:39)
[2025-01-18] MEDS: FUROSEMIDE 80 MG TAB PO SCH (07:39)
[2025-01-18] MEDS: OXYBUTYNIN CHLORIDE XL 5 MG TABCR PO SCH (07:40)
[2025-01-18] MEDS: VIBEGRON 75 MG TAB PO SCH (07:41)
[2025-01-18] MEDS: CEROVITE ADV FORMULA TAB PO SCH (07:41)
[2025-01-18] MEDS: METOPROLOL SUCC 50MG EXT REL TAB PO SCH (07:41)
[2025-01-18] MEDS: dexAMETHasone 10 MG in SYRINGE 0 ML IV SCH (07:42)
[2025-01-18 08:02] LABS: Hematocrit (blood only) 42.4 % (42.0-52.0); Hemoglobin 14.3 g/dl (14.0-18.0); Mean Corpuscular Hemoglobin 28.9 pg (25.0-34.0); Mean Corpuscular Volume 85.7 fL (80.0-100.0); Platelet Count 361 K/uL (130-400); RDW Standard Deviation 46.1 fL (36.4-46.3); Red Blood Count 4.95 M/uL (4.70-6.10); White Blood Count 17.03 K/ul (4.8-10.8)
--- NOTE | 2025-01-18 08:17 | Orthopedic Progress Note ---
Date of Service January 18, 2025 Assessment & Plan (1) Bilateral primary osteoarthritis of knee: Plan: Postop day 1 right knee replacement. Drainage is decreased over time and should be able to discontinue drain prior to discharge. Patient wants to do outpatient physical therapy at [facility] in [place]. Patient to be discharged home after seen by PT OT Hemovac drain discontinued. Follow-up in 2 weeks for possible staple removal. End-stage bilateral knee osteoarthritis presenting for right total knee [facility]. Admission and Anticipated Discharge Date Admission Date: January 17, 2025 Subjective Nerve block wore off last night but relieved with 2 pain pills. Review of Systems Review of Systems: No chest pain shortness of breath. Patient feels well. Physical Exam Musculoskeletal: Circulation sensorimotor exam intact. Dressing intact. Minor drainage on dressing. Extensor mechanism intact. Results & Data Vital Signs (Past 12 Hours) Vital Signs Temp Pulse Pulse Resp BP Pulse Ox O2 Del Method 01/18/25 07:20 36.5 C 80 16 148/83 H 93 Room Air 01/18/25 03:40 36.7 C 86 18 131/74 96 Room Air 01/17/25 23:31 36.6 C 93 H 18 166/69 H 96 Room Air 01/17/25 21:32 86 Diagnostic Findings Satisfactory aligned total knee replacement right knee
[2025-01-18 08:18] LABS: Anion Gap 8.0 (3-11); Blood Urea Nitrogen 21.0 mg/dl (6-23); Calcium 8.9 mg/dl (8.6-10.3); Carbon Dioxide 31.0 mmol/L (21-32); Chloride 101.0 mmol/L (98-107); Creatinine Clr Calc Pharmacy 142.1 ml/min; Glucose 115.0 mg/dl (70-99(Fasting)); Potassium 3.6 mmol/L (3.5-5.1); Sodium 140.0 mmol/L (136-145)
[2025-01-18 08:28] VITALS: BP 134/80
[2025-01-18 08:29] LABS: INR 1.1 (0.9-1.1); Prothrombin Time 12.0 Seconds (9.0-12.0)
[2025-01-18] MEDS: LANTUS PER UNIT CHARGE SC SCH (08:41)
[2025-01-18] MEDS: POTASSIUM CHLORIDE CRTAB 20 MEQ TABCR PO SCH (08:49)
[2025-01-18 11:38] VITALS: PULSE 80
[2025-01-18] MEDS ORDERED: WARFARIN SOD 10 MG TAB PO SCH (16:00)
--- NOTE | 2025-01-18 18:21 | Hospitalist Progress Note ---
Date of Service January 18, 2025 Assessment & Plan (1) Chronic congestive heart failure: (2) Diabetes mellitus: (3) Atrial fibrillation: (4) Hypertension: Plan Mr. Dill was admitted on 01/17/25 for elective right knee surgery and underwent a Right TKA with Dr. Galaviz on the same day. He has a known hx of permanent atrial fibrillation with no valve replacement on toprol, digoxin and Coumadin. He follows with [facility] cardiology outpatient. He is stable for d/c today home with close follow up with PCP for surveillance of INR in the setting of AC being held 5 days preoperatively and re-initiation of home regimen. ##HTN -cont. home-scheduled metoprolol succinate 100mg tablet, 0.5 tablet PO qam, diltiazem 240mg PO qam, lasix 80mg PO qam ##Chronic / persistent atrial fibrillation -cont. home-scheduled metoprolol succinate 100mg tablet, 0.5 tablet PO qam, diltiazem 240mg PO qam, digoxin 250ug PO qhs, and warfarin 7.5mg M,W,F, 10mg Velarde,,Th, Sa on d/c -patient dosed with Warfarin 7.5mg on 01/17/25 -INR subtherapeutic at 1.1 on d/c as to be expected as Coumadin was held pre-op for 5 days, to resume normal schedule on d/c with f/u with PCP next week to repeat INR (PCP in [place]) -No bridging agent with heparin infusion or lovenox 1mg/kg SQ q12 was utilized in this patient in order to avoid the potential risk for patient to develop hematoma in right total knee arthroplasty post-operatively ##Chronic diastolic CHF with preserved LVEF 55-59% and severe left atrial enlargement, suggestive of LV diastolic dysfunction -cont home-scheduled metoprolol succinate 100mg tablet, 0.5 tablet PO qam, diltiazem 240mg PO qam, digoxin 250ug PO qhs, and lasix 80mg PO qam. ##Non-insulin dependent DM2 with HbA1c 6.4% -cont home-scheduled metformin 1000mg PO bid and empagliflozin 10mg PO qam. Dispo: d/c home with PT Admission and Anticipated Discharge Date Admission Date: January 17, 2025 Subjective Awaiting discharge home. States he did receive his routine home Warfarin dosing last evening. No pain, nausea or vomiting. Pain is tolerable. He has no new acute complaints. Review of Systems Review of Systems: All systems reviewed & are unremarkable except as noted in Subjective Physical Exam Physical Exam: GENERAL APPEARANCE: A&O. Sitting comfortably in bed. NAD. SKIN: Normal color without rashes or lesions. Normal turgor. HEENT: Head AT/NC. Buccal mucosa is moist and pink. NECK: No jugular venous distention. No thyroid enlargement. There is no lymphadenopathy. HEART: Irregularly without m/g/r. LUNGS: Normal inspiratory effort. CTA without w/r/r. ABDOMEN: No guarding or rigidity. Normoactive BS in all four quadrants. Abdomen soft and NT. MSK: No bony gross/deformities throughout. ROM intact. EXTREMITIES: No edema, No peripheral cyanosis. Dressing to right leg with hemovac present. Neuro: CN 2-12 grossly intact. No focal neuro deficits PSYCHIATRIC: Normal affect. Eye contact is good. Speech is normal rate and content. Responses are appropriate. Results & Data Results & Data Vital Signs (Past 12 Hours) Vital Signs Temp Pulse Pulse Resp BP Pulse Ox O2 Del Method 01/18/25 11:33 36.5 C 85 80 16 134/80 93 01/18/25 08:00 36.5 C 85 16 134/80 93 Room Air 01/18/25 07:20 36.5 C 80 16 148/83 H 93 Room Air 01/18/25 07:15 Room Air, CPAP Laboratory Results Labs reviewed: CBC, Coags, BMP PG Care Time/CCT Total # of Minutes Spent Total Time Spent with Patient: Total time spent is greater than 50% in coordination of care (as documented) at patient's floor/unit and/or counseling patient: Coding Level of Care Code 39577 SUB INP/OBS CARE 2/35MIN Diagnoses Chronic congestive heart failure I50.9 Diabetes mellitus E11.9 Atrial fibrillation I48.91 Hypertension I10
== END 2025-01-18 12:27 | disposition home or self-care (01) ==
LOC: ASU 07:54 → 3W 07:54